=== PATIENT | male | born 1945 | race Caucasian/White ===

== ENCOUNTER 2017-11-22 09:00 | Observation (INO) ==
[2017-11-22 09:48] LABS: Basophils % 0.3 %; Eosinophils # 0.3 K/mcL (0.0-0.6); Eosinophils % 2.6 %; Hematocrit 35.1 % (37.5-50.1); Hemoglobin 10.8 g/dL (12.9-16.9); Immature Granulocytes % 0.4 % (0-4); Lymphocytes # 1.7 K/mcL (0.6-4.6); Lymphocytes % 12.8 %; Mean Corpuscular HGB Conc 30.8 g/dL (31.6-35.5); Mean Corpuscular Hemoglobin 29.3 pg (28.0-33.3); Mean Corpuscular Volume 95.4 fL (83.0-100.0); Mean Platelet Volume 10.3 fL (9.4-12.4); Monocytes % 7.8 %; Neutrophils # 9.8 K/mcL (1.6-8.9); Platelet Count 217 K/mcL (140-400); Red Blood Count 3.68 M/mcL (4.19-5.50); Red Cell Distribution Width 18.3 % (11.5-14.5); Segmented Neutrophils % 76.1 %; White Blood Count 12.9 K/mcL (4.3-11.1)
[2017-11-22 09:53] LABS: Prothrombin Time 11.3 Seconds (9.4-12.1)
[2017-11-22 09:54] LABS: Bilirubin,Urine Negative (Negative); Blood,Urine Negative (Negative); Clarity,Urine Clear (Clear); Color,Urine Yellow (Yellow); Glucose,Urine (UA) Normal (Normal); Ketones,Urine Negative (Negative); Leukocyte Esterase,Urine Negative (Negative); Nitrite,Urine Negative (Negative); PH,Urine 5.5 pH Units (5.0-8.0); Protein,Urine Negative (Neg-Trace); Specific Gravity,Urine 1.015 (1.010-1.025); Urobilinogen,Urine Normal (Normal)
[2017-11-22 09:56] LABS: Activated Partial Thrombo Time 26.4 Seconds (26.0-36.0)
[2017-11-22 10:08] LABS: BUN/Creatinine Ratio 19 (6-26); Blood Urea Nitrogen 29 mg/dL (8-23); Calcium 8.9 mg/dL (8.6-10.3); Carbon Dioxide 26 mEq/L (23-29); Chloride 105 mEq/L (98-107); Glucose 108 mg/dL (70-105); Osmolality,Calculated 288 (280-300); Potassium 4.9 mEq/L (3.5-5.1); Sodium 136 mEq/L (136-145); eGFR For African Americans 56 (> 60); eGFR For Non-African Americans 46 (> 60)
[2017-11-22 10:09] LABS: Troponin I < 0.03 ng/mL (< 0.04)
[2017-11-22] MEDS ORDERED: Furosemide 40 MG/4 ML VIAL IVP ONE (10:16)
[2017-11-22] MEDS ORDERED: Nitroglycerin 0.4 MG TAB.SUBL SL PRN (11:35)
[2017-11-22] MEDS ORDERED: Naloxone 0.4 MG/ML INJ IVP PRN (11:36)
[2017-11-22] MEDS ORDERED: Azithromycin 250 MG TABLET PO ONE ×2 (12:16→12:38)
[2017-11-22] MEDS: *HR* Heparin 5,000 UNIT/ML VIAL SQ SCH ×2 (12:50→22:41)
[2017-11-22] MEDS ORDERED: Simethicone 80 MG TAB.CHEW PO PRN (16:28)
[2017-11-22] MEDS: carvediloL 6.25 MG TABLET PO SCH (17:08)
[2017-11-22] MEDS ORDERED: Famotidine 20 MG TABLET PO SCH (21:00)
[2017-11-22] MEDS: Fluticasone Propionate Nasal 50 MCG/SPRAY BOTTLE NS SCH (22:41)
[2017-11-22] MEDS ORDERED: Melatonin 3 MG TABLET PO ONE (23:07)
[2017-11-23] MEDS: *HR* Heparin 5,000 UNIT/ML VIAL SQ SCH (05:38)
[2017-11-23 06:37] VITALS: BP 102/67
[2017-11-23] MEDS: carvediloL 6.25 MG TABLET PO SCH (08:42)
[2017-11-23] MEDS: Fluticasone Propionate Nasal 50 MCG/SPRAY BOTTLE NS SCH (08:47)
[2017-11-23] MEDS ORDERED: Aspirin Enteric Coated 81 MG Tablet PO SCH (09:00)
[2017-11-23] MEDS ORDERED: Furosemide 20 MG TABLET PO SCH (09:00)
[2017-11-23] MEDS ORDERED: EPA PO SCH (09:00)
[2017-11-23] MEDS ORDERED: Finasteride 5 MG TABLET PO SCH (09:00)
[2017-11-23] MEDS ORDERED: Loratadine 10 MG TABLET PO SCH (09:00)
[2017-11-23] MEDS ORDERED: DHA PO SCH (09:00)
[2017-11-23] MEDS ORDERED: Cyanocobalamin (B-12) 1,000 MCG TABLET PO SCH (09:00)
[2017-11-23] MEDS ORDERED: lisinopriL 5 MG TABLET PO SCH (09:00)
[2017-11-23] MEDS ORDERED: OMEGA PO SCH (09:00)
[2017-11-23] MEDS ORDERED: FISH OIL PO SCH (09:00)
[2017-11-24] MEDS ORDERED: Ergocalciferol (VIT D2) 50,000 UNIT (1.25MG) CAP PO SCH (09:00)
== END 2017-11-23 10:20 | disposition home or self-care (01) ==
LOC: EMEROOARM 09:00 → 3BNU 09:00
PROVIDERS: ADMIT Internal Medicine; ATTEND Internal Medicine

== ENCOUNTER 2018-09-19 03:25 | Inpatient (IN) ==
[2018-09-19] MEDS ORDERED: Aspirin 81 MG TAB.CHEW PO ONE (03:29)
[2018-09-19] MEDS: Nitroglycerin 0.4 MG TAB.SUBL SL PRN ×3 (03:39→03:49)
[2018-09-19 03:45] LABS: Basophils # 0.1 K/mcL (0.0-0.2); Basophils % 0.4 %; Eosinophils # 0.1 K/mcL (0.0-0.6); Eosinophils % 0.5 %; Hematocrit 35.5 % (37.5-50.1); Hemoglobin 11.4 g/dL (12.9-16.9); Immature Granulocytes % 0.6 % (0-4); Lymphocytes # 1.8 K/mcL (0.6-4.6); Lymphocytes % 12.3 %; Mean Corpuscular HGB Conc 32.1 g/dL (31.6-35.5); Mean Corpuscular Hemoglobin 29.4 pg (28.0-33.3); Mean Corpuscular Volume 91.5 fL (83.0-100.0); Mean Platelet Volume 10.5 fL (9.4-12.4); Monocytes # 1.4 K/mcL (0.0-1.3); Neutrophils # 10.8 K/mcL (1.6-8.9); Platelet Count 202 K/mcL (140-400); Red Blood Count 3.88 M/mcL (4.19-5.50); Red Cell Distribution Width 17.8 % (11.5-14.5); Segmented Neutrophils % 76.2 %; White Blood Count 14.2 K/mcL (4.3-11.1)
[2018-09-19 04:01] LABS: Prothrombin Time 11.8 Seconds (9.4-12.1)
[2018-09-19 04:04] LABS: Activated Partial Thrombo Time 28.1 Seconds (26.0-36.0)
[2018-09-19 04:07] LABS: Calcium 8.5 mg/dL (8.6-10.3); Potassium 3.5 mEq/L (3.5-5.1)
[2018-09-19 04:08] LABS: Troponin I 0.03 ng/mL (< 0.04)
[2018-09-19 04:57] LABS: Bilirubin,Urine Negative (Negative); Blood,Urine Negative (Negative); Clarity,Urine Cloudy (Clear); Color,Urine Yellow (Yellow); Glucose,Urine (UA) Normal (Normal); Ketones,Urine Negative (Negative); Leukocyte Esterase,Urine Small (Negative); Nitrite,Urine Negative (Negative); PH,Urine 5.5 pH Units (5.0-8.0); Protein,Urine Trace mg/dL (Neg-Trace); Specific Gravity,Urine 1.023 (1.010-1.025); Urobilinogen,Urine Normal (Normal)
[2018-09-19 04:59] LABS: RBC,Urine 0-3 per hpf (0-3); Squamous Epithelial Cell,Urine Many per lpf (None-Few)
[2018-09-19] MEDS ORDERED: cefTRIAXone 2,000 MG in Water for inj. (sterile) 20 ML IVP STA (05:02)
[2018-09-19] MEDS ORDERED: levoFLOXacin 750 MG/150 ML 750 MG/150 ML BAG IVPB STA (05:02)
[2018-09-19 05:10] LABS: Bacteria,Urine Few per hpf (None-Few); Hyaline Casts,Urine Few per lpf (None-Few)
[2018-09-19] MEDS ORDERED: Acetaminophen 325 MG TABLET PO PRN (05:51)
[2018-09-19] MEDS ORDERED: Ipratropium/Albuterol Neb 3 ML IH PRN (05:51)
[2018-09-19] MEDS ORDERED: Ringers Solution, Lactated 1,000 ML IVC SCH (06:00)
[2018-09-19] MEDS: *HR* Heparin 5,000 UNIT/ML VIAL SQ SCH ×3 (08:20→16:24)
[2018-09-19] MEDS: Aspirin Enteric Coated 81 MG Tablet PO SCH (08:20)
[2018-09-19] MEDS: carvediloL 6.25 MG TABLET PO SCH ×2 (08:21→16:25)
[2018-09-19] MEDS: Folic Acid 1 MG TABLET PO SCH (08:21)
[2018-09-19] MEDS: Fluticasone Propionate Nasal 50 MCG/SPRAY BOTTLE NS SCH ×2 (08:21→20:54)
[2018-09-19] MEDS: Furosemide 40 MG/4 ML VIAL IVP SCH ×2 (08:27→16:25)
[2018-09-19] MEDS ORDERED: Furosemide 20 MG TABLET PO SCH (09:00)
[2018-09-19] MEDS ORDERED: hydrOXYzine pamoate 25 MG CAPSULE PO SCH (09:00)
[2018-09-19] MEDS: cefTRIAXone 2,000 MG in Water for inj. (sterile) 20 ML IVP SCH (14:17)
[2018-09-19] MEDS: metroNIDAZOLE 500 MG TABLET PO SCH ×2 (14:17→20:54)
[2018-09-19] MEDS: *HR* OxyCODONE/APAP 10/325 TABLET PO PRN (16:32)
[2018-09-20 02:41] LABS: Hematocrit 36.7 % (37.5-50.1); Hemoglobin 11.2 g/dL (12.9-16.9); Mean Corpuscular HGB Conc 30.5 g/dL (31.6-35.5); Mean Corpuscular Hemoglobin 28.6 pg (28.0-33.3); Mean Corpuscular Volume 93.6 fL (83.0-100.0); Mean Platelet Volume 10.8 fL (9.4-12.4); Platelet Count 215 K/mcL (140-400); Red Blood Count 3.92 M/mcL (4.19-5.50); Red Cell Distribution Width 17.7 % (11.5-14.5)
[2018-09-20 03:01] LABS: Calcium 8.6 mg/dL (8.6-10.3); Potassium 3.8 mEq/L (3.5-5.1)
[2018-09-20] MEDS: *HR* Heparin 5,000 UNIT/ML VIAL SQ SCH ×2 (05:49→21:07)
[2018-09-20] MEDS: *HR* OxyCODONE/APAP 10/325 TABLET PO PRN ×3 (05:55→22:17)
[2018-09-20] MEDS: metroNIDAZOLE 500 MG TABLET PO SCH ×3 (07:46→21:13)
[2018-09-20] MEDS: Folic Acid 1 MG TABLET PO SCH (07:46)
[2018-09-20] MEDS: Aspirin Enteric Coated 81 MG Tablet PO SCH (07:47)
[2018-09-20] MEDS: cefTRIAXone 2,000 MG in Water for inj. (sterile) 20 ML IVP SCH (07:47)
[2018-09-20] MEDS: carvediloL 6.25 MG TABLET PO SCH ×2 (07:47→16:59)
[2018-09-20] MEDS: Fluticasone Propionate Nasal 50 MCG/SPRAY BOTTLE NS SCH ×2 (07:48→21:14)
[2018-09-20] MEDS ORDERED: Furosemide 20 MG TABLET PO SCH (08:00)
[2018-09-20] MEDS ORDERED: levoFLOXacin 500 MG/100 ML 500 MG/100 ML BAG IVPB SCH (09:00)
[2018-09-20] MEDS ORDERED: levoFLOXacin 750 MG/150 ML 750 MG/150 ML BAG IVPB SCH (09:00)
[2018-09-20] MEDS: Furosemide 40 MG/4 ML VIAL IVP SCH ×2 (13:51→16:59)
[2018-09-21 02:47] LABS: Hematocrit 35.1 % (37.5-50.1); Hemoglobin 10.5 g/dL (12.9-16.9); Mean Corpuscular HGB Conc 29.9 g/dL (31.6-35.5); Mean Corpuscular Hemoglobin 28.5 pg (28.0-33.3); Mean Corpuscular Volume 95.1 fL (83.0-100.0); Mean Platelet Volume 10.4 fL (9.4-12.4); Platelet Count 218 K/mcL (140-400); Red Blood Count 3.69 M/mcL (4.19-5.50); Red Cell Distribution Width 17.4 % (11.5-14.5)
[2018-09-21 03:07] LABS: Calcium 8.4 mg/dL (8.6-10.3); Potassium 3.7 mEq/L (3.5-5.1)
[2018-09-21] MEDS: *HR* Heparin 5,000 UNIT/ML VIAL SQ SCH ×2 (05:22→17:41)
[2018-09-21] MEDS: metroNIDAZOLE 500 MG TABLET PO SCH ×3 (09:21→22:02)
[2018-09-21] MEDS: carvediloL 6.25 MG TABLET PO SCH ×2 (09:21→17:40)
[2018-09-21] MEDS: Aspirin Enteric Coated 81 MG Tablet PO SCH (09:21)
[2018-09-21] MEDS: Furosemide 40 MG/4 ML VIAL IVP SCH ×2 (09:21→17:40)
[2018-09-21] MEDS: Folic Acid 1 MG TABLET PO SCH (09:21)
[2018-09-21] MEDS: cefTRIAXone 2,000 MG in Water for inj. (sterile) 20 ML IVP SCH (09:22)
[2018-09-21] MEDS: Fluticasone Propionate Nasal 50 MCG/SPRAY BOTTLE NS SCH ×2 (09:23→22:03)
[2018-09-21] MEDS: *HR* OxyCODONE/APAP 10/325 TABLET PO PRN ×2 (12:12→17:40)
[2018-09-22] MEDS: *HR* OxyCODONE/APAP 10/325 TABLET PO PRN (05:55)
[2018-09-22] MEDS: *HR* Heparin 5,000 UNIT/ML VIAL SQ SCH (05:57)
[2018-09-22 08:02] LABS: Hematocrit 34.7 % (37.5-50.1); Hemoglobin 10.6 g/dL (12.9-16.9); Mean Corpuscular HGB Conc 30.5 g/dL (31.6-35.5); Mean Corpuscular Volume 94.8 fL (83.0-100.0); Mean Platelet Volume 10.6 fL (9.4-12.4); Platelet Count 238 K/mcL (140-400); Red Blood Count 3.66 M/mcL (4.19-5.50); Red Cell Distribution Width 17.3 % (11.5-14.5); White Blood Count 11.2 K/mcL (4.3-11.1)
[2018-09-22 08:22] LABS: Calcium 8.9 mg/dL (8.6-10.3); Potassium 3.6 mEq/L (3.5-5.1)
[2018-09-22] MEDS ORDERED: Cefdinir 300 MG CAPSULE PO SCH (09:00)
[2018-09-22] MEDS: metroNIDAZOLE 500 MG TABLET PO SCH (09:09)
[2018-09-22] MEDS: Furosemide 40 MG/4 ML VIAL IVP SCH (09:10)
[2018-09-22] MEDS: carvediloL 6.25 MG TABLET PO SCH (09:10)
[2018-09-22] MEDS: Aspirin Enteric Coated 81 MG Tablet PO SCH (09:10)
[2018-09-22] MEDS: Folic Acid 1 MG TABLET PO SCH (09:10)
[2018-09-22] MEDS: Fluticasone Propionate Nasal 50 MCG/SPRAY BOTTLE NS SCH (09:12)
[2018-09-22 11:15] VITALS: BP 122/71
== END 2018-09-22 12:53 | disposition home or self-care (01) | DRG 177 ==
LOC: 2ANU 03:25 → EMEROOARM 03:25 → SUATTDRO 05:52 → 2ANU 05:55
PROVIDERS: ADMIT Internal Medicine; ATTEND Internal Medicine

== ENCOUNTER 2020-09-24 03:12 | Inpatient (IN) ==
[2020-09-24 03:51] LABS: Basophils % 0.2 %; Eosinophils # 0.1 K/mcL (0.0-0.6); Eosinophils % 0.7 %; Hematocrit 16.1 % (37.5-50.1); Immature Granulocytes % 0.8 % (0-4); Lymphocytes % 13.5 %; Mean Corpuscular HGB Conc 31.1 g/dL (31.6-35.5); Mean Corpuscular Hemoglobin 29.1 pg (28.0-33.3); Mean Corpuscular Volume 93.6 fL (83.0-100.0); Mean Platelet Volume 10.6 fL (9.4-12.4); Monocytes % 6.5 %; Neutrophils # 11.7 K/mcL (1.6-8.9); Platelet Count 294 K/mcL (140-400); Red Blood Count 1.72 M/mcL (4.19-5.50); Red Cell Distribution Width 16.2 % (11.5-14.5); Segmented Neutrophils % 78.3 %; White Blood Count 14.9 K/mcL (4.3-11.1)
[2020-09-24 04:00] LABS: INR 1.1; Prothrombin Time 12.6 Seconds (9.4-12.1)
[2020-09-24 04:03] LABS: Activated Partial Thrombo Time 22.7 Seconds (26.0-36.0)
[2020-09-24] MEDS ORDERED: Pantoprazole 40 MG VIAL IVP ONE (04:04)
[2020-09-24 04:09] LABS: Bilirubin,Urine Negative (Negative); Blood,Urine Trace (Negative); Clarity,Urine Clear (Clear); Color,Urine Colorless (Yellow); Glucose,Urine (UA) Normal (Normal); Hyaline Casts,Urine Few per lpf (None Seen); Ketones,Urine Negative (Negative); Leukocyte Esterase,Urine Negative (Negative); Nitrite,Urine Negative (Negative); PH,Urine 6.5 pH Units (5.0-8.0); Protein,Urine Negative (Neg-Trace); Specific Gravity,Urine 1.015 (1.010-1.025); Squamous Epithelial Cell,Urine Few per hpf (None-Few); Urobilinogen,Urine Normal (Normal); WBC,Urine 0-3 per hpf (0-3)
[2020-09-24 04:13] LABS: Alanine Aminotransferase 11 Units/L (7-52); Albumin 2.7 g/dL (3.5-5.7); Albumin/Globulin Ratio 1.1 (1.1-2.2); Alkaline Phosphatase 98 Units/L (34-104); Aspartate Amino Transferase 12 Units/L (13-39); BUN/Creatinine Ratio 34 (6-26); Bilirubin,Indirect 0.2 mg/dL (0.0-1.0); Bilirubin,Total 0.2 mg/dL (0.3-1.0); Blood Urea Nitrogen 91 mg/dL (8-23); Carbon Dioxide 30 mEq/L (23-29); Chloride 105 mEq/L (98-107); Globulin 2.4 g/dL (2.4-3.5); Glucose 130 mg/dL (70-105); Lipase 19 Units/L (11-82); Magnesium 2.3 mg/dL (1.6-2.6); Osmolality,Calculated 328 (280-300); Potassium 4.2 mEq/L (3.5-5.1); Sodium 144 mEq/L (136-145); Total Protein 5.1 g/dL (6.4-8.9); Troponin I < 0.03 ng/mL (< 0.04); eGFR For African Americans 28 (> 60); eGFR For Non-African Americans 23 (> 60)
[2020-09-24] MEDS ORDERED: 0.9 % Sodium Chloride 250 ML ONE ×2 (05:40→09:41)
[2020-09-24] MEDS ORDERED: Dextrose Gel 15 GM/37.5 ML TUBE PO PRN ×2 (07:16)
[2020-09-24] MEDS ORDERED: D5% in Water 1,000 ML IVC PRN (07:16)
[2020-09-24] MEDS ORDERED: Naloxone 0.4 MG/ML INJ IVP PRN (07:16)
[2020-09-24] MEDS ORDERED: *HR* Dextrose 50 % in Water (Vial) 50 ML VIAL IVP PRN (07:16)
[2020-09-24] MEDS ORDERED: Ondansetron 4 MG/2 ML VIAL IVP PRN ×2 (07:16→10:37)
[2020-09-24] MEDS ORDERED: Acetaminophen 325 MG TABLET PO PRN (07:16)
[2020-09-24] MEDS ORDERED: *HR* OxyCODONE Immed Rel 5 MG TABLET PO PRN (08:00)
[2020-09-24] MEDS ORDERED: *HR* FentaNYL (PF) 100 MCG/2 ML VIAL IVP PRN (10:37)
[2020-09-24] MEDS ORDERED: *HR* HYDROmorphone PF 0.5 MG/0.5 ML SYRINGE IVP PRN (10:37)
[2020-09-24] MEDS: Insulin LISPRO 300 UNITS/3 ML VIAL SUBQ SCH ×2 (12:23→18:01)
[2020-09-24] MEDS: 0.9 % Sodium Chloride 1,000 ML IVC SCH (13:25)
[2020-09-24 14:17] LABS: Hematocrit 21.4 % (37.5-50.1)
[2020-09-24 14:18] LABS: Hemoglobin 6.7 g/dL (12.9-16.9)
[2020-09-24] MEDS ORDERED: Lidocaine -MPF 2% 5 ML VIAL ONE (15:06)
[2020-09-24] MEDS ORDERED: *HR* Propofol 200 MG/20 ML VIAL IVP ONE (15:06)
[2020-09-24] MEDS ORDERED: *HR* FentaNYL (PF) 100 MCG/2 ML VIAL ONE (15:40)
[2020-09-24] MEDS ORDERED: *HR* Rocuronium Bromide 50 MG/5 ML VIAL ONE (15:41)
[2020-09-24] MEDS ORDERED: Pantoprazole 40 MG in 0.9 % Sodium Chloride Mini Bag 100 ML IVC SCH (15:50)
[2020-09-24] MEDS ORDERED: Ondansetron 4 MG/2 ML VIAL ONE (15:58)
[2020-09-24] MEDS ORDERED: *HR* Succinylcholine 200 MG/10 ML VIAL IVP ONE (15:58)
[2020-09-24] MEDS ORDERED: Pantoprazole 40 MG VIAL IVP SCH (18:00)
[2020-09-24] MEDS ORDERED: Haloperidol Lactate 5 MG/ML VIAL IVP ONE (20:29)
[2020-09-24] MEDS ORDERED: *HR* LORazepam 2 MG/ML VIAL IVP ONE (20:29)
[2020-09-24] MEDS: Pantoprazole 40 MG in 0.9 % Sodium Chloride Mini Bag 100 ML IVC SCH (21:29)
[2020-09-25] MEDS: Insulin LISPRO 300 UNITS/3 ML VIAL SUBQ SCH ×4 (03:28→17:50)
[2020-09-25] MEDS: 0.9 % Sodium Chloride 1,000 ML IVC SCH (05:57)
[2020-09-25 07:43] LABS: Basophils % 0.1 %; Hematocrit 20.8 % (37.5-50.1); Hematocrit 21.5 % (37.5-50.1); Hemoglobin 6.5 g/dL (12.9-16.9); Hemoglobin 6.6 g/dL (12.9-16.9); Immature Granulocytes % 1.2 % (0-4); Lymphocytes # 0.9 K/mcL (0.6-4.6); Lymphocytes % 4.4 %; Mean Corpuscular HGB Conc 31.3 g/dL (31.6-35.5); Mean Corpuscular Hemoglobin 28.8 pg (28.0-33.3); Mean Platelet Volume 10.3 fL (9.4-12.4); Monocytes # 0.7 K/mcL (0.0-1.3); Monocytes % 3.4 %; Neutrophils # 18.7 K/mcL (1.6-8.9); Platelet Count 291 K/mcL (140-400); Red Blood Count 2.26 M/mcL (4.19-5.50); Red Cell Distribution Width 17.1 % (11.5-14.5); Segmented Neutrophils % 90.9 %; White Blood Count 20.6 K/mcL (4.3-11.1)
[2020-09-25 08:10] LABS: Calcium 8.1 mg/dL (8.6-10.3); Magnesium 2.3 mg/dL (1.6-2.6); Phosphorous 2.6 mg/dL (2.7-4.5); Potassium 4.2 mEq/L (3.5-5.1)
[2020-09-25 08:15] LABS: % Iron Saturation 9 % (20-55); Iron 23 mcg/dL (65-175); Transferrin 189 mg/dL (203-362)
[2020-09-25 08:20] LABS: Ferritin 74 ng/mL (20-250)
[2020-09-25] MEDS: Pantoprazole 40 MG in 0.9 % Sodium Chloride Mini Bag 100 ML IVC SCH ×2 (14:59→20:53)
[2020-09-25 16:25] LABS: Hematocrit 23.9 % (37.5-50.1); Hemoglobin 7.2 g/dL (12.9-16.9)
[2020-09-25] MEDS: carvediloL 6.25 MG TABLET PO SCH (20:52)
[2020-09-25] MEDS: Famotidine 20 MG TABLET PO SCH (20:52)
[2020-09-25] MEDS ORDERED: carvediloL 6.25 MG TABLET PO SCH (21:00)
[2020-09-25] MEDS: *HR* HYDROcodone/Acet 5/325 mg TABLET PO PRN (23:55)
[2020-09-26] MEDS: Insulin LISPRO 300 UNITS/3 ML VIAL SUBQ SCH ×3 (02:46→16:31)
[2020-09-26] MEDS: Pantoprazole 40 MG in 0.9 % Sodium Chloride Mini Bag 100 ML IVC SCH ×3 (05:41→16:47)
[2020-09-26] MEDS: carvediloL 6.25 MG TABLET PO SCH ×2 (08:35→15:45)
[2020-09-26] MEDS ORDERED: Finasteride 5 MG TABLET PO SCH (09:00)
[2020-09-26] MEDS ORDERED: Folic Acid 1 MG TABLET PO SCH (09:00)
[2020-09-26] MEDS ORDERED: Cyanocobalamin (B-12) 1,000 MCG TABLET PO SCH (09:00)
[2020-09-26] MEDS ORDERED: Cholecalciferol (D-3) 1,000 UNIT (25MCG) TABLET PO SCH (09:00)
[2020-09-26 09:12] LABS: Basophils % 0.2 %; Eosinophils # 0.1 K/mcL (0.0-0.6); Eosinophils % 0.3 %; Hematocrit 21.3 % (37.5-50.1); Hemoglobin 6.7 g/dL (12.9-16.9); Immature Granulocytes % 1.1 % (0-4); Lymphocytes # 2.5 K/mcL (0.6-4.6); Lymphocytes % 10.5 %; Mean Corpuscular HGB Conc 31.5 g/dL (31.6-35.5); Mean Corpuscular Hemoglobin 28.4 pg (28.0-33.3); Mean Corpuscular Volume 90.3 fL (83.0-100.0); Mean Platelet Volume 10.1 fL (9.4-12.4); Monocytes # 1.6 K/mcL (0.0-1.3); Monocytes % 6.6 %; Neutrophils # 19.1 K/mcL (1.6-8.9); Nucleated Red Blood Cells 0.2 /100 WBC (0); Platelet Count 303 K/mcL (140-400); Red Blood Count 2.36 M/mcL (4.19-5.50); Red Cell Distribution Width 19.9 % (11.5-14.5); Segmented Neutrophils % 81.3 %; White Blood Count 23.4 K/mcL (4.3-11.1)
[2020-09-26 09:30] LABS: Albumin 2.8 g/dL (3.5-5.7); Albumin/Globulin Ratio 1.2 (1.1-2.2); Bilirubin,Total 0.3 mg/dL (0.3-1.0); Calcium 8.2 mg/dL (8.6-10.3); Globulin 2.3 g/dL (2.4-3.5); Magnesium 2.2 mg/dL (1.6-2.6); Phosphorous 3.3 mg/dL (2.7-4.5); Potassium 4.2 mEq/L (3.5-5.1); Total Protein 5.1 g/dL (6.4-8.9)
[2020-09-26 09:54] LABS: Folate 7.3 ng/mL (3.0-16.0)
[2020-09-26] MEDS: *HR* HYDROcodone/Acet 5/325 mg TABLET PO PRN ×2 (10:51→16:47)
[2020-09-26] MEDS ORDERED: 0.9 % Sodium Chloride 250 ML ONE (13:00)
[2020-09-26 17:47] LABS: Hematocrit 23.7 % (37.5-50.1); Hemoglobin 7.5 g/dL (12.9-16.9)
[2020-09-26] MEDS: Famotidine 20 MG TABLET PO SCH (19:25)
[2020-09-26 20:22] VITALS: BP 131/65; PULSE 60; TEMP 98.3; O2SAT 97
== END 2020-09-26 20:42 | disposition left against medical advice (07) | DRG 377 ==
LOC: CDU 03:12 → EMEROOARM 03:12 → SUATTDRO 05:29 → CDU 06:08 → 3ANU 22:48
PROVIDERS: ADMIT Family Medicine; ATTEND Internal Medicine

== ENCOUNTER 2021-05-18 07:22 | Inpatient (IN) ==
[2021-05-18] MEDS ORDERED: 0.9 % Sodium Chloride 1,000 ML IVC ONE (07:27)
[2021-05-18 08:28] LABS: Bilirubin,Urine Negative (Negative); Blood,Urine Moderate (Negative); Clarity,Urine Turbid (Clear); Color,Urine Yellow (Yellow); Glucose,Urine (UA) Normal (Normal); Hyaline Casts,Urine Few per lpf (None Seen); Ketones,Urine 20 mg/dL (Negative); Leukocyte Esterase,Urine Large (Negative); Mucus,Urine Few per lpf (None-Few); Nitrite,Urine Negative (Negative); Protein,Urine 100 mg/dL (Neg-Trace); RBC,Urine 50-100 per hpf (0-3); Specific Gravity,Urine 1.014 (1.010-1.025); Squamous Epithelial Cell,Urine Few per hpf (None-Few); WBC,Urine TNTC per hpf (0-3)
[2021-05-18 08:45] LABS: Basophils % 0.3 %; Eosinophils # 0.6 K/mcL (0.0-0.6); Eosinophils % 5.2 %; Hematocrit 31.4 % (37.5-50.1); Hemoglobin 9.7 g/dL (12.9-16.9); Immature Granulocytes % 0.4 % (0-4); Lymphocytes # 1.1 K/mcL (0.6-4.6); Lymphocytes % 10.3 %; Mean Corpuscular HGB Conc 30.9 g/dL (31.6-35.5); Mean Corpuscular Hemoglobin 28.3 pg (28.0-33.3); Mean Corpuscular Volume 91.5 fL (83.0-100.0); Mean Platelet Volume 10.3 fL (9.4-12.4); Monocytes % 9.3 %; Neutrophils # 8.3 K/mcL (1.6-8.9); Platelet Count 335 K/mcL (140-400); Red Blood Count 3.43 M/mcL (4.19-5.50); Red Cell Distribution Width 18.5 % (11.5-14.5); Segmented Neutrophils % 74.5 %; White Blood Count 11.1 K/mcL (4.3-11.1)
[2021-05-18 08:52] LABS: INR 1.3; Prothrombin Time 14.1 Seconds (9.4-12.1)
[2021-05-18 09:09] LABS: Alanine Aminotransferase 7 Units/L (7-52); Albumin 2.9 g/dL (3.5-5.7); Albumin/Globulin Ratio 0.8 (1.1-2.2); Alkaline Phosphatase 164 Units/L (34-104); Aspartate Amino Transferase 21 Units/L (13-39); BUN/Creatinine Ratio 10 (6-26); Bilirubin,Direct 0.4 mg/dL (0.0-0.2); Bilirubin,Indirect 0.4 mg/dL (0.0-1.0); Bilirubin,Total 0.8 mg/dL (0.3-1.0); Blood Urea Nitrogen 45 mg/dL (8-23); Calcium 8.2 mg/dL (8.6-10.3); Carbon Dioxide 31 mEq/L (23-29); Chloride 103 mEq/L (98-107); Ethanol < 10 mg/dL (Less than 10); Globulin 3.5 g/dL (2.4-3.5); Glucose 88 mg/dL (70-105); Osmolality,Calculated 311 (280-300); Potassium 3.5 mEq/L (3.5-5.1); Sodium 145 mEq/L (136-145); Total Protein 6.4 g/dL (6.4-8.9); Troponin I 0.06 ng/mL (< 0.04); eGFR For African Americans 15 (> 60); eGFR For Non-African Americans 12 (> 60)
[2021-05-18 09:12] LABS: Amphetamine Screen,Urine Negative ng/mL (Cutoff=1000); Barbiturate Screen,Urine Negative ng/mL (Cutoff=200); Benzodiazepines Screen,Urine Negative ng/mL (Cutoff=200); Cannabinoid Screen,Urine Negative ng/mL (Cutoff = 50); Cocaine Screen,Urine Negative ng/mL (Cutoff= 300); Opiate Screen,Urine Negative ng/mL (Cutoff=300); Phencyclidine Screen,Urine Negative ng/mL (Cutoff=25)
[2021-05-18] MEDS ORDERED: cefTRIAXone 2,000 MG in 0.9 % Sodium Chloride Mini Bag 100 ML IVPB ONE (09:45)
[2021-05-18] MEDS ORDERED: cefTRIAXone 2,000 MG in 0.9 % Sodium Chloride 10 ML IVP ONE (10:00)
[2021-05-18] MEDS ORDERED: Naloxone 0.4 MG/ML INJ IVP PRN (11:05)
[2021-05-18] MEDS ORDERED: Ondansetron 4 MG/2 ML VIAL IVP PRN (11:05)
[2021-05-18] MEDS ORDERED: D5% in Water 1,000 ML IVC PRN (12:01)
[2021-05-18] MEDS ORDERED: Dextrose 4 GM Chewable Tablets PO PRN ×2 (12:01)
[2021-05-18] MEDS ORDERED: *HR* Dextrose 50 % in Water (Syg) 50 ML SYRINGE IVP PRN (12:01)
[2021-05-18] MEDS: 0.9 % Sodium Chloride 1,000 ML IVC SCH ×2 (12:18→23:26)
[2021-05-18] MEDS: *HR* Heparin 5,000 UNIT/ML VIAL SQ SCH (17:16)
[2021-05-18] MEDS: carvediloL 6.25 MG TABLET PO SCH (17:16)
[2021-05-19 03:03] LABS: Basophils % 0.4 %; Eosinophils # 0.6 K/mcL (0.0-0.6); Eosinophils % 6.5 %; Hematocrit 28.8 % (37.5-50.1); Hemoglobin 8.6 g/dL (12.9-16.9); Immature Granulocytes % 0.3 % (0-4); Lymphocytes # 1.1 K/mcL (0.6-4.6); Lymphocytes % 11.8 %; Mean Corpuscular HGB Conc 29.9 g/dL (31.6-35.5); Mean Corpuscular Hemoglobin 27.3 pg (28.0-33.3); Mean Corpuscular Volume 91.4 fL (83.0-100.0); Mean Platelet Volume 10.3 fL (9.4-12.4); Monocytes # 0.7 K/mcL (0.0-1.3); Monocytes % 7.6 %; Neutrophils # 6.7 K/mcL (1.6-8.9); Platelet Count 292 K/mcL (140-400); Red Blood Count 3.15 M/mcL (4.19-5.50); Red Cell Distribution Width 18.6 % (11.5-14.5); Segmented Neutrophils % 73.4 %; White Blood Count 9.2 K/mcL (4.3-11.1)
[2021-05-19 03:27] LABS: Calcium 7.5 mg/dL (8.6-10.3); Magnesium 1.8 mg/dL (1.6-2.6); Phosphorous 2.9 mg/dL (2.7-4.5); Potassium 3.4 mEq/L (3.5-5.1); Troponin I 0.06 ng/mL (< 0.04)
[2021-05-19] MEDS ORDERED: 0.9 % Sodium Chloride 1,000 ML IVC SCH (03:45)
[2021-05-19] MEDS: *HR* Heparin 5,000 UNIT/ML VIAL SQ SCH ×2 (06:12→17:03)
[2021-05-19] MEDS ORDERED: Sennosides/Docusate Sodium TABLET PO PRN (07:40)
[2021-05-19] MEDS ORDERED: Nitroglycerin 0.4 MG TAB.SUBL SL PRN (07:40)
[2021-05-19] MEDS ORDERED: *HR* OxyCODONE/APAP 10/325 TABLET PO PRN (07:40)
[2021-05-19 08:34] LABS: Uric Acid 8.4 mg/dL (2.3-7.6)
[2021-05-19] MEDS: Lactulose Oral Soln 20 GM/30 ML UDC PO SCH ×2 (09:40→09:42)
[2021-05-19] MEDS: Cyanocobalamin (B-12) 1,000 MCG TABLET PO SCH (09:41)
[2021-05-19] MEDS: Folic Acid 1 MG TABLET PO SCH (09:41)
[2021-05-19] MEDS: allopurinoL 100 MG TABLET PO SCH (09:42)
[2021-05-19] MEDS: carvediloL 6.25 MG TABLET PO SCH ×2 (09:42→17:08)
[2021-05-19] MEDS: Finasteride 5 MG TABLET PO SCH (09:46)
[2021-05-19] MEDS: cefTRIAXone 1,000 MG in 0.9 % Sodium Chloride 10 ML IVP SCH (09:47)
[2021-05-19] MEDS ORDERED: Acetaminophen 650 MG RECTAL SUPP RC PRN (10:54)
[2021-05-19] MEDS ORDERED: Acetaminophen 325 MG TABLET PO PRN (10:55)
[2021-05-19] MEDS ORDERED: D5% in 0.45% NACL 1,000 ML IVC SCH (11:00)
[2021-05-19 11:32] LABS: Protein/Creatinine Ratio,Urine 1.28 mg/mg (0.00-0.20); Sodium, Urine 91.7 mEq/L
[2021-05-19] MEDS: D5% in 0.45% NACL 1,000 ML IVC SCH (13:10)
[2021-05-20] MEDS: D5% in 0.45% NACL 1,000 ML IVC SCH ×2 (03:34→17:38)
[2021-05-20 05:30] LABS: Basophils # 0.1 K/mcL (0.0-0.2); Basophils % 0.6 %; Eosinophils # 0.7 K/mcL (0.0-0.6); Eosinophils % 7.8 %; Hematocrit 29.3 % (37.5-50.1); Hemoglobin 8.9 g/dL (12.9-16.9); Immature Granulocytes % 0.4 % (0-4); Lymphocytes # 1.1 K/mcL (0.6-4.6); Lymphocytes % 13.1 %; Mean Corpuscular HGB Conc 30.4 g/dL (31.6-35.5); Mean Corpuscular Hemoglobin 27.8 pg (28.0-33.3); Mean Corpuscular Volume 91.6 fL (83.0-100.0); Mean Platelet Volume 10.3 fL (9.4-12.4); Monocytes # 0.6 K/mcL (0.0-1.3); Monocytes % 7.1 %; Platelet Count 301 K/mcL (140-400); Red Cell Distribution Width 18.7 % (11.5-14.5); White Blood Count 8.5 K/mcL (4.3-11.1)
[2021-05-20] MEDS: *HR* Heparin 5,000 UNIT/ML VIAL SQ SCH ×2 (05:46→17:40)
[2021-05-20 05:47] LABS: Potassium 3.2 mEq/L (3.5-5.1)
[2021-05-20] MEDS: Folic Acid 1 MG TABLET PO SCH (10:18)
[2021-05-20] MEDS: Finasteride 5 MG TABLET PO SCH (10:18)
[2021-05-20] MEDS: cefTRIAXone 1,000 MG in 0.9 % Sodium Chloride 10 ML IVP SCH (10:19)
[2021-05-20] MEDS: Lactulose Oral Soln 20 GM/30 ML UDC PO SCH (10:19)
[2021-05-20] MEDS: Cyanocobalamin (B-12) 1,000 MCG TABLET PO SCH (10:19)
[2021-05-20] MEDS: carvediloL 6.25 MG TABLET PO SCH ×2 (10:19→17:40)
[2021-05-20] MEDS: allopurinoL 100 MG TABLET PO SCH (10:19)
[2021-05-20] MEDS ORDERED: Simethicone 80 MG TAB.CHEW PO PRN (10:20)
[2021-05-21 05:27] LABS: Basophils % 0.3 %; Eosinophils # 0.7 K/mcL (0.0-0.6); Eosinophils % 7.9 %; Hematocrit 30.6 % (37.5-50.1); Immature Granulocytes % 0.4 % (0-4); Lymphocytes # 1.1 K/mcL (0.6-4.6); Lymphocytes % 12.1 %; Mean Corpuscular HGB Conc 29.4 g/dL (31.6-35.5); Mean Corpuscular Hemoglobin 27.4 pg (28.0-33.3); Mean Corpuscular Volume 93.3 fL (83.0-100.0); Mean Platelet Volume 10.7 fL (9.4-12.4); Monocytes # 0.7 K/mcL (0.0-1.3); Monocytes % 7.2 %; Neutrophils # 6.5 K/mcL (1.6-8.9); Platelet Count 291 K/mcL (140-400); Red Blood Count 3.28 M/mcL (4.19-5.50); Red Cell Distribution Width 18.6 % (11.5-14.5); Segmented Neutrophils % 72.1 %; White Blood Count 9.1 K/mcL (4.3-11.1)
[2021-05-21 05:32] LABS: INR 1.1; Prothrombin Time 12.8 Seconds (9.4-12.1)
[2021-05-21] MEDS: *HR* Heparin 5,000 UNIT/ML VIAL SQ SCH ×3 (05:34→21:40)
[2021-05-21 05:56] LABS: Calcium 8.1 mg/dL (8.6-10.3); Potassium 3.4 mEq/L (3.5-5.1)
[2021-05-21] MEDS: Folic Acid 1 MG TABLET PO SCH (10:37)
[2021-05-21] MEDS: Finasteride 5 MG TABLET PO SCH (10:37)
[2021-05-21] MEDS: Cyanocobalamin (B-12) 1,000 MCG TABLET PO SCH (10:37)
[2021-05-21] MEDS: Lactulose Oral Soln 20 GM/30 ML UDC PO SCH (10:37)
[2021-05-21] MEDS: allopurinoL 100 MG TABLET PO SCH (10:37)
[2021-05-21] MEDS: cefTRIAXone 1,000 MG in 0.9 % Sodium Chloride 10 ML IVP SCH (10:38)
[2021-05-21] MEDS: carvediloL 6.25 MG TABLET PO SCH ×2 (10:40→16:05)
[2021-05-21] MEDS: D5% in 0.45% NACL 1,000 ML IVC SCH (10:47)
[2021-05-21] MEDS ORDERED: Potassium Chloride Elixir 20 MEQ/15 ML UDC PO ONE (15:47)
[2021-05-21] MEDS: Colchicine 0.6 MG TABLET PO SCH (16:05)
[2021-05-21] MEDS ORDERED: 0.9 % Sodium Chloride 1,000 ML IVC ONE (23:51)
[2021-05-22] MEDS: D5% in 0.45% NACL 1,000 ML IVC SCH ×2 (00:39→02:48)
[2021-05-22 01:35] LABS: Basophils % 0.5 %; Eosinophils # 0.7 K/mcL (0.0-0.6); Eosinophils % 7.9 %; Hematocrit 28.7 % (37.5-50.1); Hemoglobin 8.4 g/dL (12.9-16.9); Immature Granulocytes % 0.6 % (0-4); Lymphocytes # 1.1 K/mcL (0.6-4.6); Lymphocytes % 12.5 %; Mean Corpuscular HGB Conc 29.3 g/dL (31.6-35.5); Mean Corpuscular Hemoglobin 27.4 pg (28.0-33.3); Mean Corpuscular Volume 93.5 fL (83.0-100.0); Mean Platelet Volume 10.3 fL (9.4-12.4); Monocytes # 0.7 K/mcL (0.0-1.3); Monocytes % 8.6 %; Platelet Count 277 K/mcL (140-400); Red Blood Count 3.07 M/mcL (4.19-5.50); Red Cell Distribution Width 18.7 % (11.5-14.5); Segmented Neutrophils % 69.9 %; White Blood Count 8.6 K/mcL (4.3-11.1)
[2021-05-22 01:48] LABS: Calcium 7.9 mg/dL (8.6-10.3); Potassium 3.2 mEq/L (3.5-5.1)
[2021-05-22] MEDS: *HR* Heparin 5,000 UNIT/ML VIAL SQ SCH ×3 (04:49→21:20)
[2021-05-22] MEDS ORDERED: Albuterol 2.5 MG/3 ML NEBULIZER IH ONE (09:04)
[2021-05-22] MEDS: allopurinoL 100 MG TABLET PO SCH (09:10)
[2021-05-22] MEDS: Colchicine 0.6 MG TABLET PO SCH (09:10)
[2021-05-22] MEDS: Folic Acid 1 MG TABLET PO SCH (09:10)
[2021-05-22] MEDS: carvediloL 6.25 MG TABLET PO SCH ×2 (09:10→17:30)
[2021-05-22] MEDS: cefTRIAXone 1,000 MG in 0.9 % Sodium Chloride 10 ML IVP SCH (09:11)
[2021-05-22] MEDS: Finasteride 5 MG TABLET PO SCH (09:11)
[2021-05-22] MEDS: Lactulose Oral Soln 20 GM/30 ML UDC PO SCH (09:11)
[2021-05-22] MEDS: Cyanocobalamin (B-12) 1,000 MCG TABLET PO SCH (09:12)
[2021-05-22] MEDS ORDERED: Potassium Chloride Elixir 20 MEQ/15 ML UDC PO ONE ×2 (11:32→12:45)
[2021-05-22] MEDS ORDERED: 0.9 % Sodium Chloride 1,000 ML IVC SCH (11:45)
[2021-05-22] MEDS: D5% in 0.9% NACL 1,000 ML IVC SCH ×2 (13:18→22:07)
[2021-05-23] MEDS ORDERED: 0.9 % Sodium Chloride 1,000 ML IV ONE (04:12)
[2021-05-23 05:00] LABS: Potassium 3.7 mEq/L (3.5-5.1)
[2021-05-23] MEDS: *HR* Heparin 5,000 UNIT/ML VIAL SQ SCH ×3 (06:20→21:21)
[2021-05-23] MEDS: D5% in 0.9% NACL 1,000 ML IVC SCH (08:55)
[2021-05-23] MEDS: cefTRIAXone 1,000 MG in 0.9 % Sodium Chloride 10 ML IVP SCH (09:18)
[2021-05-23] MEDS: Folic Acid 1 MG TABLET PO SCH (09:25)
[2021-05-23] MEDS: Lactulose Oral Soln 20 GM/30 ML UDC PO SCH (09:25)
[2021-05-23] MEDS: Finasteride 5 MG TABLET PO SCH (09:25)
[2021-05-23] MEDS: allopurinoL 100 MG TABLET PO SCH (09:26)
[2021-05-23] MEDS: Cyanocobalamin (B-12) 1,000 MCG TABLET PO SCH (09:26)
[2021-05-23] MEDS ORDERED: Furosemide 40 MG/4 ML VIAL IVP ONE (09:39)
[2021-05-23 09:57] LABS: ABG Base Excess -4 mEq/L (-2 to 3); ABG HCO3 23 mEq/L (21-27); ABG Oxygen Saturation 98 % (95-98); ABG PCO2 50 mmHg (35-45); ABG PH 7.27 pH Units (7.32-7.45); ABG PO2 121 mmHg (85-104); ABG TCO2 24 mEq/L (20-26)
[2021-05-23] MEDS ORDERED: Albumin 25% 25gram/100mL 25 GM/100 ML IV.SOLN IVPB SCH (10:10)
[2021-05-23 10:14] LABS: C-Reactive Protein 151 mg/L (Less than 10)
[2021-05-23 10:34] LABS: Creatine Kinase 266 Units/L (30-223)
[2021-05-23] MEDS: Albumin 25% 25gram/100mL 25 GM/100 ML IV.SOLN IVPB SCH ×2 (11:50→16:34)
[2021-05-23] MEDS ORDERED: EPINEPHrine 1 MG/ML VIAL IV ONE (13:19)
[2021-05-23] MEDS ORDERED: Vancomycin 2,000 MG/520 ML IV.SOLN IVPB ONE (13:19)
[2021-05-23] MEDS ORDERED: Norepinephrine 4 MG/254 ML in 0.9% Sodium Chloride IVC ONE (13:19)
[2021-05-23] MEDS ORDERED: *HR* Atropine Sulfate 1 MG/10 ML SYRINGE IV ONE (13:19)
[2021-05-23] MEDS ORDERED: *HR* EPINEPHrine 1 MG/10 ML SYRINGE IVP ONE (13:19)
[2021-05-23 13:47] LABS: Basophils % 0.3 %; Eosinophils # 0.5 K/mcL (0.0-0.6); Eosinophils % 6.8 %; Hematocrit 27.5 % (37.5-50.1); Hemoglobin 7.8 g/dL (12.9-16.9); Immature Granulocytes % 0.6 % (0-4); Lymphocytes # 1.2 K/mcL (0.6-4.6); Lymphocytes % 15.2 %; Mean Corpuscular HGB Conc 28.4 g/dL (31.6-35.5); Mean Corpuscular Hemoglobin 27.3 pg (28.0-33.3); Mean Corpuscular Volume 96.2 fL (83.0-100.0); Mean Platelet Volume 10.8 fL (9.4-12.4); Monocytes # 0.8 K/mcL (0.0-1.3); Monocytes % 9.6 %; Platelet Count 247 K/mcL (140-400); Red Blood Count 2.86 M/mcL (4.19-5.50); Red Cell Distribution Width 19.1 % (11.5-14.5); Segmented Neutrophils % 67.5 %; White Blood Count 7.9 K/mcL (4.3-11.1)
[2021-05-23 13:48] LABS: Neutrophils # 5.3 K/mcL (1.6-8.9)
[2021-05-23] MEDS ORDERED: Vancomycin 1,750 MG in 0.9 % Sodium Chloride 250 ML IVPB SCH (14:00)
[2021-05-23 14:10] LABS: Albumin 2.5 g/dL (3.5-5.7); Albumin/Globulin Ratio 0.8 (1.1-2.2); Bilirubin,Total 0.3 mg/dL (0.3-1.0); Calcium 8.2 mg/dL (8.6-10.3); Globulin 3.3 g/dL (2.4-3.5); Potassium 3.8 mEq/L (3.5-5.1); Total Protein 5.8 g/dL (6.4-8.9)
[2021-05-23] MEDS ORDERED: *HR* Etomidate 20 MG/10 ML AMPUL IVP ONE (14:29)
[2021-05-23] MEDS ORDERED: *HR* Rocuronium Bromide 50 MG/5 ML VIAL IVP ONE (14:29)
[2021-05-23] MEDS ORDERED: *HR* Midazolam HCl 5 MG/5 ML VIAL IVP ONE (14:29)
[2021-05-23] MEDS ORDERED: Sodium Bicarbonate 50 MEQ in 0.45 % Sodium Chloride 1,000 ML IVC SCH (15:30)
[2021-05-23] MEDS ORDERED: Ipratropium/Albuterol Neb 3 ML ONE (16:34)
[2021-05-23] MEDS: Ipratropium/Albuterol Neb 3 ML IH SCH ×2 (16:39→20:17)
[2021-05-23] MEDS ORDERED: diazePAM 10 MG/2 ML SYRINGE IVP ONE (22:21)
[2021-05-23] MEDS ORDERED: D5% in Water 250 ML ONE (23:21)
[2021-05-23] MEDS ORDERED: Artificial Tears SOLN 15 ML BOTTLE BOTH EYES PRN (23:40)
[2021-05-23 23:48] LABS: Basophils # 0.1 K/mcL (0.0-0.2); Basophils % 0.5 %; Eosinophils # 0.6 K/mcL (0.0-0.6); Hematocrit 28.9 % (37.5-50.1); Hemoglobin 8.2 g/dL (12.9-16.9); Immature Granulocytes % 3.2 % (0-4); Lymphocytes # 2.4 K/mcL (0.6-4.6); Mean Corpuscular HGB Conc 28.4 g/dL (31.6-35.5); Mean Corpuscular Volume 98.6 fL (83.0-100.0); Monocytes # 0.7 K/mcL (0.0-1.3); Neutrophils # 6.3 K/mcL (1.6-8.9); Platelet Count 259 K/mcL (140-400); Red Blood Count 2.93 M/mcL (4.19-5.50); Red Cell Distribution Width 19.3 % (11.5-14.5); Segmented Neutrophils % 60.3 %; White Blood Count 10.5 K/mcL (4.3-11.1)
[2021-05-23 23:49] LABS: Hypochromasia Present (Not Present)
[2021-05-23 23:58] LABS: INR 1.2; Prothrombin Time 13.1 Seconds (9.4-12.1)
[2021-05-24] LABS: Activated Partial Thrombo Time 37.5 Seconds (26.0-36.0)
[2021-05-24 00:07] LABS: Albumin 2.8 g/dL (3.5-5.7); Albumin/Globulin Ratio 0.8 (1.1-2.2); Bilirubin,Total 0.3 mg/dL (0.3-1.0); Calcium 8.6 mg/dL (8.6-10.3); Globulin 3.3 g/dL (2.4-3.5); Magnesium 1.7 mg/dL (1.6-2.6); Phosphorous 5.4 mg/dL (2.7-4.5); Potassium 3.9 mEq/L (3.5-5.1); Total Protein 6.1 g/dL (6.4-8.9)
[2021-05-24 00:25] LABS: ABG Base Excess -7 mEq/L (-2 to 3); ABG HCO3 19 mEq/L (21-27); ABG Oxygen Saturation 99 % (95-98); ABG PCO2 37 mmHg (35-45); ABG PH 7.32 pH Units (7.32-7.45); ABG PO2 149 mmHg (85-104); ABG TCO2 20 mEq/L (20-26); Blood Gas VT 500 cc
[2021-05-24] MEDS: Artificial Tears SOLN 15 ML BOTTLE BOTH EYES SCH ×7 (00:51→23:22)
[2021-05-24] MEDS: Albumin 25% 25gram/100mL 25 GM/100 ML IV.SOLN IVPB SCH ×4 (00:55→23:22)
[2021-05-24] MEDS: FentaNYL (PF) 1,000 MCG/100 ML IV.SOLN IVC SCH ×2 (01:40→17:46)
[2021-05-24] MEDS: Norepinephrine 4 MG/254 ML IV.SOLN IVC SCH ×4 (01:44→07:27)
[2021-05-24] MEDS: Ipratropium/Albuterol Neb 3 ML IH SCH ×4 (03:55→20:10)
[2021-05-24 04:07] LABS: ABG Base Excess -6 mEq/L (-2 to 3); ABG HCO3 18 mEq/L (21-27); ABG Oxygen Saturation 99 % (95-98); ABG PCO2 33 mmHg (35-45); ABG PH 7.36 pH Units (7.32-7.45); ABG PO2 166 mmHg (85-104); ABG TCO2 20 mEq/L (20-26); Blood Gas VT 500 cc
[2021-05-24 04:28] LABS: Hematocrit 25.4 % (37.5-50.1); Hemoglobin 7.4 g/dL (12.9-16.9); Mean Corpuscular HGB Conc 29.1 g/dL (31.6-35.5); Mean Corpuscular Volume 96.2 fL (83.0-100.0); Mean Platelet Volume 10.3 fL (9.4-12.4); Platelet Count 235 K/mcL (140-400); Red Blood Count 2.64 M/mcL (4.19-5.50); Red Cell Distribution Width 19.2 % (11.5-14.5); White Blood Count 9.3 K/mcL (4.3-11.1)
[2021-05-24 04:31] LABS: VBG Ionized Calcium 1.15 mmol/L (1.15-1.35)
[2021-05-24 04:47] LABS: Albumin 2.8 g/dL (3.5-5.7); Bilirubin,Total 0.5 mg/dL (0.3-1.0); Calcium 8.3 mg/dL (8.6-10.3); Globulin 2.9 g/dL (2.4-3.5); Phosphorous 3.3 mg/dL (2.7-4.5); Potassium 3.5 mEq/L (3.5-5.1); Total Protein 5.7 g/dL (6.4-8.9)
[2021-05-24] MEDS: *HR* Heparin 5,000 UNIT/ML VIAL SQ SCH ×3 (06:18→22:30)
[2021-05-24] MEDS: Pantoprazole 40 MG VIAL IVP SCH (08:00)
[2021-05-24] MEDS: Lactulose Oral Soln 20 GM/30 ML UDC PO SCH (08:01)
[2021-05-24] MEDS: Chlorhexidine Rinse 15 ML MOUTHWASH MM SCH ×2 (08:01→19:35)
[2021-05-24] MEDS: Cefepime HCl 1,000 MG in 0.9 % Sodium Chloride 10 ML IVP SCH (08:01)
[2021-05-24] MEDS: Folic Acid 1 MG TABLET PO SCH (08:02)
[2021-05-24] MEDS: Finasteride 5 MG TABLET PO SCH (08:02)
[2021-05-24] MEDS: allopurinoL 100 MG TABLET PO SCH (08:02)
[2021-05-24] MEDS: Cyanocobalamin (B-12) 1,000 MCG TABLET PO SCH (08:02)
[2021-05-24] MEDS: Norepinephrine 8 MG/250 ML IV.SOLN IVC SCH ×2 (08:39→11:12)
[2021-05-24 10:53] LABS: Complement C3 125 mg/dL (87-200)
[2021-05-24] MEDS ORDERED: 0.9 % Sodium Chloride 1,000 ML ONE (13:23)
[2021-05-24] MEDS: Norepinephrine 32 MG/250 ML IV.SOLN IVC SCH (14:53)
[2021-05-24] MEDS ORDERED: Perflutren Lipid Microsphere 1.3 ML in 0.9 % Sodium Chloride 8.7 ML IVP PRN (15:11)
[2021-05-24] MEDS: Hydrocortisone Sodium Succ 100 MG/2 ML VIAL IVP SCH ×2 (15:15→19:35)
[2021-05-24 15:40] LABS: Hematocrit 27.6 % (37.5-50.1); Hemoglobin 8.2 g/dL (12.9-16.9)
[2021-05-24 16:01] LABS: Calcium 8.5 mg/dL (8.6-10.3); Potassium 3.4 mEq/L (3.5-5.1)
[2021-05-24 18:06] LABS: Bilirubin,Urine Negative (Negative); Blood,Urine Moderate (Negative); Clarity,Urine Clear (Clear); Color,Urine Light-Yellow (Yellow); Glucose,Urine (UA) Normal (Normal); Hyaline Casts,Urine Few per lpf (None Seen); Ketones,Urine Trace mg/dL (Negative); Leukocyte Esterase,Urine Small (Negative); Mucus,Urine Few per lpf (None-Few); Nitrite,Urine Negative (Negative); Protein,Urine 70 mg/dL (Neg-Trace); Specific Gravity,Urine 1.014 (1.010-1.025); Squamous Epithelial Cell,Urine Few per hpf (None-Few); Urobilinogen,Urine Normal (Normal)
[2021-05-25] MEDS: Hydrocortisone Sodium Succ 100 MG/2 ML VIAL IVP SCH ×2 (03:51→08:48)
[2021-05-25 03:52] LABS: VBG Ionized Calcium 1.18 mmol/L (1.15-1.35)
[2021-05-25] MEDS: Artificial Tears SOLN 15 ML BOTTLE BOTH EYES SCH ×5 (03:52→21:04)
[2021-05-25 03:56] LABS: Basophils % 0.3 %; Eosinophils % 0.1 %; Hematocrit 28.6 % (37.5-50.1); Hemoglobin 8.3 g/dL (12.9-16.9); Immature Granulocytes % 1.2 % (0-4); Lymphocytes # 0.7 K/mcL (0.6-4.6); Lymphocytes % 7.2 %; Mean Corpuscular Hemoglobin 27.4 pg (28.0-33.3); Mean Corpuscular Volume 94.4 fL (83.0-100.0); Mean Platelet Volume 11.1 fL (9.4-12.4); Monocytes # 0.3 K/mcL (0.0-1.3); Monocytes % 2.9 %; Neutrophils # 8.8 K/mcL (1.6-8.9); Platelet Count 244 K/mcL (140-400); Red Blood Count 3.03 M/mcL (4.19-5.50); Red Cell Distribution Width 19.3 % (11.5-14.5); Segmented Neutrophils % 88.3 %
[2021-05-25 04:09] LABS: Albumin 3.3 g/dL (3.5-5.7); Albumin/Globulin Ratio 1.1 (1.1-2.2); Bilirubin,Direct 0.1 mg/dL (0.0-0.2); Bilirubin,Indirect 0.4 mg/dL (0.0-1.0); Bilirubin,Total 0.5 mg/dL (0.3-1.0); Globulin 2.9 g/dL (2.4-3.5); Magnesium 1.9 mg/dL (1.6-2.6); Potassium 3.9 mEq/L (3.5-5.1); Total Protein 6.2 g/dL (6.4-8.9)
[2021-05-25] MEDS: Ipratropium/Albuterol Neb 3 ML IH SCH ×4 (04:10→21:02)
[2021-05-25 04:19] LABS: ABG Base Excess -12 mEq/L (-2 to 3); ABG HCO3 13 mEq/L (21-27); ABG Oxygen Saturation 96 % (95-98); ABG PCO2 29 mmHg (35-45); ABG PH 7.27 pH Units (7.32-7.45); ABG PO2 90 mmHg (85-104); ABG TCO2 14 mEq/L (20-26); Blood Gas VT 500 cc
[2021-05-25] MEDS ORDERED: Sodium Bicarbonate 50 MEQ in 0.45 % Sodium Chloride 1,000 ML IVC SCH (05:00)
[2021-05-25] MEDS: *HR* Heparin 5,000 UNIT/ML VIAL SQ SCH ×3 (06:32→21:03)
[2021-05-25] MEDS: Norepinephrine 32 MG/250 ML IV.SOLN IVC SCH (08:15)
[2021-05-25] MEDS: FentaNYL (PF) 1,000 MCG/100 ML IV.SOLN IVC SCH (08:19)
[2021-05-25] MEDS: allopurinoL 100 MG TABLET PO SCH (08:44)
[2021-05-25] MEDS: Folic Acid 1 MG TABLET PO SCH (08:44)
[2021-05-25] MEDS: Chlorhexidine Rinse 15 ML MOUTHWASH MM SCH ×2 (08:45→21:03)
[2021-05-25] MEDS: Lactulose Oral Soln 20 GM/30 ML UDC PO SCH (08:45)
[2021-05-25] MEDS: Cefepime HCl 1,000 MG in 0.9 % Sodium Chloride 10 ML IVP SCH (08:45)
[2021-05-25] MEDS: Pantoprazole 40 MG VIAL IVP SCH (08:47)
[2021-05-25] MEDS: Cyanocobalamin (B-12) 1,000 MCG TABLET PO SCH (08:48)
[2021-05-25] MEDS: Albumin 25% 25gram/100mL 25 GM/100 ML IV.SOLN IVPB SCH (08:49)
[2021-05-25] MEDS: Sodium Bicarbonate 75 MEQ in 0.45 % Sodium Chloride 1,000 ML IVC SCH (10:49)
[2021-05-25 11:44] LABS: Calcium 9.3 mg/dL (8.6-10.3); Potassium 3.8 mEq/L (3.5-5.1)
[2021-05-25] MEDS ORDERED: Dexmedetomidine HCl 400 MCG/100 ML MLS IVC ONE (16:04)
[2021-05-25] MEDS: Dexmedetomidine HCl 400 MCG/100 ML MLS IVC SCH (16:05)
[2021-05-25 20:10] LABS: ABG Base Excess -10 mEq/L (-2 to 3); ABG HCO3 21 mEq/L (21-27); ABG Oxygen Saturation 98 % (95-98); ABG PCO2 72 mmHg (35-45); ABG PH 7.06 pH Units (7.32-7.45); ABG PO2 146 mmHg (85-104); ABG TCO2 23 mEq/L (20-26); Blood Gas Modality BiLevel
[2021-05-25 21:03] LABS: ABG Base Excess -9 mEq/L (-2 to 3); ABG HCO3 19 mEq/L (21-27); ABG Oxygen Saturation 98 % (95-98); ABG PCO2 45 mmHg (35-45); ABG PH 7.23 pH Units (7.32-7.45); ABG PO2 117 mmHg (85-104); ABG TCO2 20 mEq/L (20-26); Blood Gas VT 550 cc
[2021-05-25 23:44] LABS: ABG Base Excess -7 mEq/L (-2 to 3); ABG HCO3 19 mEq/L (21-27); ABG Oxygen Saturation 100 % (95-98); ABG PCO2 38 mmHg (35-45); ABG PO2 190 mmHg (85-104); ABG TCO2 20 mEq/L (20-26); Blood Gas Modality AVAPS; Blood Gas VT 550 cc
[2021-05-26] MEDS: Artificial Tears SOLN 15 ML BOTTLE BOTH EYES SCH ×7 (00:46→23:48)
[2021-05-26] MEDS: Ipratropium/Albuterol Neb 3 ML IH SCH ×4 (04:04→21:33)
[2021-05-26 04:11] LABS: ABG Base Excess -7 mEq/L (-2 to 3); ABG HCO3 18 mEq/L (21-27); ABG Oxygen Saturation 93 % (95-98); ABG PCO2 35 mmHg (35-45); ABG PH 7.33 pH Units (7.32-7.45); ABG PO2 72 mmHg (85-104); ABG TCO2 19 mEq/L (20-26); Blood Gas VT 550 cc
[2021-05-26 04:43] LABS: Basophils % 0.2 %; Hematocrit 27.9 % (37.5-50.1); Hemoglobin 8.3 g/dL (12.9-16.9); Immature Granulocytes % 0.9 % (0-4); Lymphocytes # 0.8 K/mcL (0.6-4.6); Lymphocytes % 4.8 %; Mean Corpuscular HGB Conc 29.7 g/dL (31.6-35.5); Mean Corpuscular Hemoglobin 27.6 pg (28.0-33.3); Mean Corpuscular Volume 92.7 fL (83.0-100.0); Mean Platelet Volume 11.4 fL (9.4-12.4); Monocytes # 0.7 K/mcL (0.0-1.3); Monocytes % 4.5 %; Neutrophils # 14.8 K/mcL (1.6-8.9); Nucleated Red Blood Cells 0.2 /100 WBC (0); Platelet Count 312 K/mcL (140-400); Red Blood Count 3.01 M/mcL (4.19-5.50); Red Cell Distribution Width 19.3 % (11.5-14.5); Segmented Neutrophils % 89.6 %
[2021-05-26 04:47] LABS: White Blood Count 16.5 K/mcL (4.3-11.1)
[2021-05-26 05:03] LABS: Albumin 3.2 g/dL (3.5-5.7); Albumin/Globulin Ratio 1.1 (1.1-2.2); Bilirubin,Direct 0.1 mg/dL (0.0-0.2); Bilirubin,Indirect 0.4 mg/dL (0.0-1.0); Bilirubin,Total 0.5 mg/dL (0.3-1.0); Calcium 9.3 mg/dL (8.6-10.3); Magnesium 1.9 mg/dL (1.6-2.6); Phosphorous 3.5 mg/dL (2.7-4.5); Potassium 3.4 mEq/L (3.5-5.1); Total Protein 6.2 g/dL (6.4-8.9)
[2021-05-26] MEDS: *HR* Heparin 5,000 UNIT/ML VIAL SQ SCH ×3 (05:31→20:51)
[2021-05-26] MEDS: Norepinephrine 32 MG/250 ML IV.SOLN IVC SCH (07:30)
[2021-05-26] MEDS: Sodium Bicarbonate 75 MEQ in 0.45 % Sodium Chloride 1,000 ML IVC SCH (08:24)
[2021-05-26] MEDS: Dexmedetomidine HCl 400 MCG/100 ML MLS IVC SCH ×2 (08:25→19:09)
[2021-05-26] MEDS: Pantoprazole 40 MG VIAL IVP SCH (08:29)
[2021-05-26] MEDS: Cefepime HCl 1,000 MG in 0.9 % Sodium Chloride 10 ML IVP SCH (08:30)
[2021-05-26] MEDS ORDERED: Furosemide 40 MG/4 ML VIAL IVP ONE (09:19)
[2021-05-26] MEDS: allopurinoL 100 MG TABLET PO SCH (09:48)
[2021-05-26] MEDS: Cyanocobalamin (B-12) 1,000 MCG TABLET PO SCH (09:48)
[2021-05-26] MEDS: Lactulose Oral Soln 20 GM/30 ML UDC PO SCH (09:48)
[2021-05-26] MEDS: Folic Acid 1 MG TABLET PO SCH (09:48)
[2021-05-26] MEDS: Chlorhexidine Rinse 15 ML MOUTHWASH MM SCH ×2 (09:48→20:51)
[2021-05-26] MEDS ORDERED: Albumin 25% 25gram/100mL 25 GM/100 ML IV.SOLN ONE (09:51)
[2021-05-26] MEDS: Albumin 25% 25gram/100mL 25 GM/100 ML IV.SOLN IVPB SCH ×3 (09:55→23:49)
[2021-05-26 10:09] LABS: Kappa Qnt Free Light Chains 127.77 mg/L (3.30-19.40); Lambda Qnt Free Light Chains 100.74 mg/L (5.71-26.30)
[2021-05-26] MEDS: Furosemide 240 MG in 0.9 % Sodium Chloride 96 ML IVC SCH (14:06)
[2021-05-26 17:20] LABS: ABG Base Excess -7 mEq/L (-2 to 3); ABG HCO3 19 mEq/L (21-27); ABG Oxygen Saturation 81 % (95-98); ABG PCO2 42 mmHg (35-45); ABG PH 7.27 pH Units (7.32-7.45); ABG PO2 51 mmHg (85-104); ABG TCO2 21 mEq/L (20-26)
[2021-05-26] MEDS: FentaNYL (PF) 1,000 MCG/100 ML IV.SOLN IVC SCH (23:48)
[2021-05-27] MEDS ORDERED: *HR* Etomidate 20 MG/10 ML AMPUL IVP ONE (01:00)
[2021-05-27] MEDS ORDERED: *HR* Midazolam HCl 5 MG/5 ML VIAL IVP ONE (01:00)
[2021-05-27] MEDS: Artificial Tears SOLN 15 ML BOTTLE BOTH EYES SCH ×8 (02:52→23:58)
[2021-05-27] MEDS: Ipratropium/Albuterol Neb 3 ML IH SCH ×4 (03:46→21:45)
[2021-05-27 04:01] LABS: VBG Ionized Calcium 1.28 mmol/L (1.15-1.35)
[2021-05-27 04:23] LABS: Hematocrit 27.3 % (37.5-50.1); Hemoglobin 8.1 g/dL (12.9-16.9); Mean Corpuscular HGB Conc 29.7 g/dL (31.6-35.5); Mean Corpuscular Hemoglobin 27.5 pg (28.0-33.3); Mean Corpuscular Volume 92.5 fL (83.0-100.0); Mean Platelet Volume 11.6 fL (9.4-12.4); Nucleated Red Blood Cells 0.3 /100 WBC (0); Platelet Count 204 K/mcL (140-400); Red Blood Count 2.95 M/mcL (4.19-5.50); Red Cell Distribution Width 19.5 % (11.5-14.5); White Blood Count 11.9 K/mcL (4.3-11.1)
[2021-05-27 04:37] LABS: Albumin 3.3 g/dL (3.5-5.7); Albumin/Globulin Ratio 1.2 (1.1-2.2); Bilirubin,Direct 0.2 mg/dL (0.0-0.2); Bilirubin,Indirect 0.4 mg/dL (0.0-1.0); Bilirubin,Total 0.6 mg/dL (0.3-1.0); Calcium 9.5 mg/dL (8.6-10.3); Globulin 2.8 g/dL (2.4-3.5); Magnesium 1.9 mg/dL (1.6-2.6); Phosphorous 3.3 mg/dL (2.7-4.5); Total Protein 6.1 g/dL (6.4-8.9)
[2021-05-27 05:09] LABS: ABG Base Excess -8 mEq/L (-2 to 3); ABG HCO3 20 mEq/L (21-27); ABG Oxygen Saturation 68 % (95-98); ABG PCO2 46 mmHg (35-45); ABG PH 7.23 pH Units (7.32-7.45); ABG PO2 42 mmHg (85-104); ABG TCO2 21 mEq/L (20-26); Blood Gas Modality AVAPS; Blood Gas VT 600 cc
[2021-05-27] MEDS ORDERED: Artificial Tears SOLN 15 ML BOTTLE BOTH EYES PRN (05:11)
[2021-05-27] MEDS ORDERED: FentaNYL (PF) 1,000 MCG/100 ML IV.SOLN IVC SCH (05:15)
[2021-05-27] MEDS: FentaNYL (PF) 1,000 MCG/100 ML IV.SOLN IVC SCH ×2 (05:21→20:16)
[2021-05-27 05:34] LABS: Anisocytosis 1+ (Not Present); Lymphocytes # 1.7 K/mcL (0.6-4.6); Monocytes # 0.2 K/mcL (0.0-1.3); Platelet Estimate Normal (Normal)
[2021-05-27] MEDS ORDERED: Albumin 25% 25gram/100mL 25 GM/100 ML IV.SOLN ONE (05:35)
[2021-05-27] MEDS ORDERED: Albumin Human 5% 12.5 GM/250 ML IV.SOLN ONE (05:36)
[2021-05-27] MEDS: *HR* Heparin 5,000 UNIT/ML VIAL SQ SCH ×3 (06:08→19:54)
[2021-05-27 06:46] LABS: ABG Base Excess -9 mEq/L (-2 to 3); ABG HCO3 18 mEq/L (21-27); ABG Oxygen Saturation 83 % (95-98); ABG PCO2 46 mmHg (35-45); ABG PH 7.21 pH Units (7.32-7.45); ABG PO2 58 mmHg (85-104); ABG TCO2 20 mEq/L (20-26); Blood Gas Modality AF; Blood Gas VT 500 cc
[2021-05-27] MEDS ORDERED: Potassium Chloride 40 MEQ/200 ML BAG IVPB PRN (07:42)
[2021-05-27] MEDS ORDERED: Potassium Chloride Elixir 20 MEQ/15 ML UDC GTUBE ONE (07:59)
[2021-05-27] MEDS: Lactulose Oral Soln 20 GM/30 ML UDC PO SCH (08:08)
[2021-05-27] MEDS: Chlorhexidine Rinse 15 ML MOUTHWASH MM SCH ×2 (08:09→19:52)
[2021-05-27] MEDS: Pantoprazole 40 MG VIAL IVP SCH (08:09)
[2021-05-27] MEDS: Cefepime HCl 1,000 MG in 0.9 % Sodium Chloride 10 ML IVP SCH (08:09)
[2021-05-27] MEDS: Cyanocobalamin (B-12) 1,000 MCG TABLET PO SCH (08:10)
[2021-05-27] MEDS: Albumin 25% 25gram/100mL 25 GM/100 ML IV.SOLN IVPB SCH ×2 (08:10→15:39)
[2021-05-27] MEDS: allopurinoL 100 MG TABLET PO SCH (08:10)
[2021-05-27] MEDS: Folic Acid 1 MG TABLET PO SCH (08:10)
[2021-05-27] MEDS: Dexmedetomidine HCl 400 MCG/100 ML MLS IVC SCH ×2 (08:30→20:50)
[2021-05-27 08:50] LABS: Alpha 2 Globulin (PEP) 0.68 g/dL (0.48-1.05); Beta Globulin (PEP) 0.62 g/dL (0.48-1.10)
[2021-05-27] MEDS ORDERED: Chlorhexidine Rinse 15 ML MOUTHWASH MM SCH (09:00)
[2021-05-27 09:56] LABS: ANA IgG by ELISA NONE DETECTED (None Detected)
[2021-05-27 10:11] LABS: IFE Reflexed NOT DONE
[2021-05-27] MEDS: Furosemide 240 MG in 0.9 % Sodium Chloride 96 ML IVC SCH (10:54)
[2021-05-27] MEDS: Norepinephrine 32 MG/250 ML IV.SOLN IVC SCH ×2 (13:05→20:16)
[2021-05-27] MEDS ORDERED: *HR* Heparin 5,000 UNIT/ML VIAL ONE (13:09)
[2021-05-27] MEDS ORDERED: 0.9 % Sodium Chloride 2,000 ML ONE (14:23)
[2021-05-27] MEDS: PrismaSATE BGK 4/2.5 5,000 ML CRRT SCH ×5 (14:57→21:29)
[2021-05-27] MEDS ORDERED: Phenylephrine 20 MG in 0.9 % Sodium Chloride 250 ML IVC SCH (15:30)
[2021-05-27] MEDS: Hydrocortisone Sodium Succ 100 MG/2 ML VIAL IVP SCH ×2 (16:53→23:57)
[2021-05-27 17:09] LABS: ANCA IFA Titer <1:20 (<1:20)
[2021-05-27] MEDS ORDERED: Phenylephrine 100 MG in 0.9 % Sodium Chloride 250 ML IVC SCH (20:15)
[2021-05-27 20:43] LABS: Calcium 9.2 mg/dL (8.6-10.3); Potassium 3.7 mEq/L (3.5-5.1)
[2021-05-27] MEDS: Phenylephrine 100 MG in 0.9 % Sodium Chloride 250 ML IVC SCH (20:46)
[2021-05-27] MEDS: *HR* Heparin 5,000 UNIT/ML VIAL IVP PRN (23:25)
[2021-05-28] MEDS ORDERED: 0.9 % Sodium Chloride 1,000 ML ONE ×2 (00:42→11:49)
[2021-05-28] MEDS: Norepinephrine 32 MG/250 ML IV.SOLN IVC SCH ×3 (02:13→15:09)
[2021-05-28] MEDS: PrismaSATE BGK 4/2.5 5,000 ML CRRT SCH ×11 (02:59→23:30)
[2021-05-28] MEDS: Artificial Tears SOLN 15 ML BOTTLE BOTH EYES SCH ×6 (03:00→22:43)
[2021-05-28] MEDS: Ipratropium/Albuterol Neb 3 ML IH SCH ×4 (03:20→20:01)
[2021-05-28 03:26] LABS: VBG Ionized Calcium 1.17 mmol/L (1.15-1.35)
[2021-05-28 04:06] LABS: Basophils # 0.1 K/mcL (0.0-0.2); Basophils % 0.4 %; Hematocrit 26.9 % (37.5-50.1); Hemoglobin 8.4 g/dL (12.9-16.9); Lymphocytes # 0.8 K/mcL (0.6-4.6); Lymphocytes % 2.9 %; Mean Corpuscular HGB Conc 31.2 g/dL (31.6-35.5); Mean Corpuscular Hemoglobin 28.2 pg (28.0-33.3); Mean Corpuscular Volume 90.3 fL (83.0-100.0); Mean Platelet Volume 11.5 fL (9.4-12.4); Monocytes # 0.8 K/mcL (0.0-1.3); Monocytes % 2.6 %; Nucleated Red Blood Cells 1.2 /100 WBC (0); Platelet Count 262 K/mcL (140-400); Red Blood Count 2.98 M/mcL (4.19-5.50); Red Cell Distribution Width 20.2 % (11.5-14.5); Segmented Neutrophils % 92.1 %; White Blood Count 28.7 K/mcL (4.3-11.1)
[2021-05-28 04:07] LABS: Neutrophils # 26.4 K/mcL (1.6-8.9)
[2021-05-28 04:22] LABS: Albumin 3.5 g/dL (3.5-5.7); Albumin/Globulin Ratio 1.2 (1.1-2.2); Calcium 8.9 mg/dL (8.6-10.3); Globulin 2.9 g/dL (2.4-3.5); Phosphorous 2.4 mg/dL (2.7-4.5); Potassium 4.4 mEq/L (3.5-5.1); Total Protein 6.4 g/dL (6.4-8.9)
[2021-05-28] MEDS: *HR* Heparin 5,000 UNIT/ML VIAL SQ SCH ×3 (05:06→22:43)
[2021-05-28] MEDS: Hydrocortisone Sodium Succ 100 MG/2 ML VIAL IVP SCH ×4 (05:07→22:43)
[2021-05-28] MEDS: Phenylephrine 100 MG in 0.9 % Sodium Chloride 250 ML IVC SCH ×2 (05:07→06:08)
[2021-05-28 05:08] LABS: ABG Base Excess -6 mEq/L (-2 to 3); ABG HCO3 21 mEq/L (21-27); ABG Oxygen Saturation 99 % (95-98); ABG PCO2 43 mmHg (35-45); ABG PH 7.29 pH Units (7.32-7.45); ABG PO2 157 mmHg (85-104); ABG TCO2 22 mEq/L (20-26); Blood Gas Modality AF; Blood Gas VT 500 cc
[2021-05-28] MEDS: FentaNYL (PF) 1,000 MCG/100 ML IV.SOLN IVC SCH ×2 (05:33→15:09)
[2021-05-28 07:25] LABS: Adenovirus Not Detected (Not Detect); Bordetella Pertussis Not Detected (Not Detect); Chlamydophila pneumoniae Not Detected (Not Detect); Coronavirus 229E Not Detected (Not Detect); Coronavirus HKU1 Not Detected (Not Detect); Coronavirus NL63 Not Detected (Not Detect); Coronavirus OC43 Not Detected (Not Detect); Human Metapneumovirus Not Detected (Not Detect); Human Rhinovirus/Enterovirus Not Detected (Not Detect); Influenza A Subtype 2009 H1 Not Detected (Not Detect); Influenza B Not Detected (Not Detect); Mycoplasma pneumoniae Not Detected (Not Detect); Parainfluenza Virus 1 Not Detected (Not Detect); Parainfluenza Virus 2 Not Detected (Not Detect); Parainfluenza Virus 3 Not Detected (Not Detect); Parainfluenza Virus 4 Not Detected (Not Detect); Respiratory Syncytial Virus Not Detected (Not Detect); SARS-CoV-2 Not Detected (Not Detect)
[2021-05-28] MEDS: Dexmedetomidine HCl 400 MCG/100 ML MLS IVC SCH (08:00)
[2021-05-28] MEDS: Lactulose Oral Soln 20 GM/30 ML UDC PO SCH (08:18)
[2021-05-28] MEDS: Pantoprazole 40 MG VIAL IVP SCH (08:18)
[2021-05-28] MEDS: allopurinoL 100 MG TABLET PO SCH (08:18)
[2021-05-28] MEDS: Chlorhexidine Rinse 15 ML MOUTHWASH MM SCH ×2 (08:18→19:28)
[2021-05-28] MEDS: Cefepime HCl 1,000 MG in 0.9 % Sodium Chloride 10 ML IVP SCH (08:18)
[2021-05-28] MEDS: Folic Acid 1 MG TABLET PO SCH (08:18)
[2021-05-28] MEDS: Cyanocobalamin (B-12) 1,000 MCG TABLET PO SCH (08:18)
[2021-05-28 10:37] LABS: ANCA IFA Pattern NONE DETECTED (None Detected); Serine Protease-3 Antibody 2 AU/mL (0-19)
[2021-05-28] MEDS ORDERED: Vancomycin 1,750 MG in 0.9 % Sodium Chloride 250 ML IVPB SCH (11:00)
[2021-05-28] MEDS ORDERED: Vancomycin 1,750 MG/517.5 ML IV.SOLN IVPB ONE (11:01)
[2021-05-28] MEDS ORDERED: 0.9 % Sodium Chloride 2,000 ML ONE (11:24)
[2021-05-28] MEDS: Furosemide 240 MG in 0.9 % Sodium Chloride 96 ML IVC SCH (11:50)
[2021-05-28 20:03] LABS: Bacteria,Urine Few per hpf (None-Few); Bilirubin,Urine Negative (Negative); Blood,Urine Moderate (Negative); Budding Yeast,Urine Few per hpf (None Seen); Clarity,Urine Turbid (Clear); Color,Urine Yellow (Yellow); Glucose,Urine (UA) Normal (Normal); Hyaline Casts,Urine Few per lpf (None Seen); Ketones,Urine Trace mg/dL (Negative); Leukocyte Esterase,Urine Small (Negative); Mucus,Urine Few per lpf (None-Few); Nitrite,Urine Negative (Negative); Protein,Urine >=300 mg/dL (Neg-Trace); Specific Gravity,Urine 1.025 (1.010-1.025); Squamous Epithelial Cell,Urine Few per hpf (None-Few); Urobilinogen,Urine Normal (Normal)
[2021-05-29] MEDS ORDERED: 0.9 % Sodium Chloride 2,000 ML ONE (00:02)
[2021-05-29] MEDS: PrismaSATE BGK 4/2.5 5,000 ML CRRT SCH ×10 (01:09→21:54)
[2021-05-29] MEDS: FentaNYL (PF) 1,000 MCG/100 ML IV.SOLN IVC SCH ×3 (01:55→21:39)
[2021-05-29] MEDS: Norepinephrine 32 MG/250 ML IV.SOLN IVC SCH (02:30)
[2021-05-29] MEDS: Artificial Tears SOLN 15 ML BOTTLE BOTH EYES SCH ×6 (03:35→23:55)
[2021-05-29] MEDS: Ipratropium/Albuterol Neb 3 ML IH SCH ×4 (03:43→20:01)
[2021-05-29 03:48] LABS: VBG Ionized Calcium 1.14 mmol/L (1.15-1.35)
[2021-05-29 03:50] LABS: Basophils # 0.1 K/mcL (0.0-0.2); Basophils % 0.2 %; Eosinophils % 0.1 %; Hematocrit 23.7 % (37.5-50.1); Hemoglobin 7.3 g/dL (12.9-16.9); Lymphocytes # 1.2 K/mcL (0.6-4.6); Lymphocytes % 4.9 %; Mean Corpuscular HGB Conc 30.8 g/dL (31.6-35.5); Mean Corpuscular Hemoglobin 27.7 pg (28.0-33.3); Mean Corpuscular Volume 89.8 fL (83.0-100.0); Mean Platelet Volume 10.5 fL (9.4-12.4); Monocytes # 1.2 K/mcL (0.0-1.3); Monocytes % 4.8 %; Nucleated Red Blood Cells 0.7 /100 WBC (0); Platelet Count 196 K/mcL (140-400); Red Blood Count 2.64 M/mcL (4.19-5.50); White Blood Count 24.6 K/mcL (4.3-11.1)
[2021-05-29 03:52] LABS: Neutrophils # 21.4 K/mcL (1.6-8.9)
[2021-05-29 04:14] LABS: Albumin 3.1 g/dL (3.5-5.7); Albumin/Globulin Ratio 1.1 (1.1-2.2); Calcium 8.6 mg/dL (8.6-10.3); Globulin 2.8 g/dL (2.4-3.5); Magnesium 2.3 mg/dL (1.6-2.6); Phosphorous 2.8 mg/dL (2.7-4.5); Potassium 4.3 mEq/L (3.5-5.1); Total Protein 5.9 g/dL (6.4-8.9)
[2021-05-29 04:30] LABS: ABG Base Excess -2 mEq/L (-2 to 3); ABG HCO3 23 mEq/L (21-27); ABG Oxygen Saturation 78 % (95-98); ABG PCO2 43 mmHg (35-45); ABG PH 7.34 pH Units (7.32-7.45); ABG PO2 45 mmHg (85-104); ABG TCO2 24 mEq/L (20-26); Blood Gas VT 500 cc
[2021-05-29 04:39] LABS: Anisocytosis 2+ (Not Present); Hypochromasia Present (Not Present); Large Platelets Present (Not Present); Platelet Estimate Normal (Normal); Stomatocytes 1+ (Not Present)
[2021-05-29 05:31] LABS: Calcium 8.6 mg/dL (8.6-10.3); Potassium 4.5 mEq/L (3.5-5.1)
[2021-05-29] MEDS: Hydrocortisone Sodium Succ 100 MG/2 ML VIAL IVP SCH ×2 (05:34→12:01)
[2021-05-29] MEDS: *HR* Heparin 5,000 UNIT/ML VIAL SQ SCH ×3 (05:35→19:20)
[2021-05-29] MEDS: Chlorhexidine Rinse 15 ML MOUTHWASH MM SCH ×2 (08:59→19:18)
[2021-05-29] MEDS: Folic Acid 1 MG TABLET PO SCH (08:59)
[2021-05-29] MEDS: Cefepime HCl 1,000 MG in 0.9 % Sodium Chloride 10 ML IVP SCH (08:59)
[2021-05-29] MEDS: allopurinoL 100 MG TABLET PO SCH (08:59)
[2021-05-29] MEDS: Cyanocobalamin (B-12) 1,000 MCG TABLET PO SCH (08:59)
[2021-05-29] MEDS: Lactulose Oral Soln 20 GM/30 ML UDC PO SCH (08:59)
[2021-05-29] MEDS: Pantoprazole 40 MG VIAL IVP SCH (09:00)
[2021-05-29] MEDS ORDERED: Hydrocortisone Sodium Succ 100 MG/2 ML VIAL IVP SCH (15:00)
[2021-05-29] MEDS ORDERED: *HR* Heparin 5,000 UNIT/ML VIAL ONE (22:47)
[2021-05-29] MEDS ORDERED: 0.9 % Sodium Chloride 1,000 ML ONE (23:24)
[2021-05-29] MEDS: *HR* Heparin 5,000 UNIT/ML VIAL IVP PRN (23:53)
[2021-05-30] MEDS: Hydrocortisone Sodium Succ 100 MG/2 ML VIAL IVP SCH ×2 (00:07→12:03)
[2021-05-30] MEDS: PrismaSATE BGK 4/2.5 5,000 ML CRRT SCH ×13 (00:13→23:13)
[2021-05-30] MEDS: Furosemide 240 MG in 0.9 % Sodium Chloride 96 ML IVC SCH ×2 (01:13→21:33)
[2021-05-30 03:24] LABS: Basophils % 0.2 %; Hemoglobin 7.1 g/dL (12.9-16.9); Nucleated Red Blood Cells 0.7 /100 WBC (0)
[2021-05-30 03:25] LABS: Basophils # 0.1 K/mcL (0.0-0.2); Eosinophils # 0.1 K/mcL (0.0-0.6); Eosinophils % 0.2 %; Hematocrit 22.8 % (37.5-50.1); Immature Granulocytes % 4.9 % (0-4); Lymphocytes # 1.4 K/mcL (0.6-4.6); Lymphocytes % 4.2 %; Mean Corpuscular HGB Conc 31.1 g/dL (31.6-35.5); Mean Corpuscular Hemoglobin 27.3 pg (28.0-33.3); Mean Corpuscular Volume 87.7 fL (83.0-100.0); Mean Platelet Volume 11.6 fL (9.4-12.4); Monocytes # 2.3 K/mcL (0.0-1.3); Neutrophils # 26.8 K/mcL (1.6-8.9); Platelet Count 172 K/mcL (140-400); Red Cell Distribution Width 19.5 % (11.5-14.5); Segmented Neutrophils % 83.5 %
[2021-05-30 03:29] LABS: VBG Ionized Calcium 1.13 mmol/L (1.15-1.35)
[2021-05-30 03:42] LABS: White Blood Count 32.1 K/mcL (4.3-11.1)
[2021-05-30 03:43] LABS: Alanine Aminotransferase 8 Units/L (7-52); Albumin 3.1 g/dL (3.5-5.7); Albumin/Globulin Ratio 1.1 (1.1-2.2); Alkaline Phosphatase 83 Units/L (34-104); Aspartate Amino Transferase 17 Units/L (13-39); BUN/Creatinine Ratio 22 (6-26); Bilirubin,Total 1.2 mg/dL (0.3-1.0); Blood Urea Nitrogen 20 mg/dL (8-23); Calcium 8.4 mg/dL (8.6-10.3); Carbon Dioxide 26 mEq/L (23-29); Chloride 103 mEq/L (98-107); Globulin 2.9 g/dL (2.4-3.5); Glucose 113 mg/dL (70-105); Magnesium 2.3 mg/dL (1.6-2.6); Osmolality,Calculated 287 (280-300); Phosphorous 1.6 mg/dL (2.7-4.5); Potassium 3.9 mEq/L (3.5-5.1); Sodium 137 mEq/L (136-145); eGFR For African Americans > 60 (> 60); eGFR For Non-African Americans > 60 (> 60)
[2021-05-30 03:45] LABS: Anisocytosis 2+ (Not Present); Hypochromasia Present (Not Present); Platelet Estimate Normal (Normal); Poikilocytosis 1+ (Not Present); Target Cells 1+ (Not Present)
[2021-05-30] MEDS: Ipratropium/Albuterol Neb 3 ML IH SCH ×4 (03:45→21:41)
[2021-05-30] MEDS ORDERED: Potassium Phosphate 44 MEQ in 0.9 % Sodium Chloride 250 ML IVPB PRN (04:13)
[2021-05-30 04:25] LABS: ABG Base Excess 0 mEq/L (-2 to 3); ABG HCO3 24 mEq/L (21-27); ABG Oxygen Saturation 96 % (95-98); ABG PCO2 38 mmHg (35-45); ABG PH 7.41 pH Units (7.32-7.45); ABG PO2 78 mmHg (85-104); ABG TCO2 25 mEq/L (20-26); Blood Gas VT 500 cc
[2021-05-30] MEDS: Artificial Tears SOLN 15 ML BOTTLE BOTH EYES SCH ×5 (04:54→19:28)
[2021-05-30] MEDS: Norepinephrine 32 MG/250 ML IV.SOLN IVC SCH (05:00)
[2021-05-30] MEDS: *HR* Heparin 5,000 UNIT/ML VIAL SQ SCH ×3 (06:03→21:41)
[2021-05-30] MEDS: FentaNYL (PF) 1,000 MCG/100 ML IV.SOLN IVC SCH ×2 (08:59→16:00)
[2021-05-30] MEDS: Cyanocobalamin (B-12) 1,000 MCG TABLET PO SCH (09:00)
[2021-05-30] MEDS: Chlorhexidine Rinse 15 ML MOUTHWASH MM SCH ×2 (09:00→19:29)
[2021-05-30] MEDS: Lactulose Oral Soln 20 GM/30 ML UDC PO SCH (09:00)
[2021-05-30] MEDS: allopurinoL 100 MG TABLET PO SCH (09:00)
[2021-05-30] MEDS: Folic Acid 1 MG TABLET PO SCH (09:00)
[2021-05-30] MEDS: Pantoprazole 40 MG VIAL IVP SCH (09:00)
[2021-05-30] MEDS: Cefepime HCl 1,000 MG in 0.9 % Sodium Chloride 10 ML IVP SCH (09:01)
[2021-05-30] MEDS ORDERED: 0.9 % Sodium Chloride 2,000 ML ONE (19:22)
[2021-05-30] MEDS ORDERED: *HR* Heparin 5,000 UNIT/ML VIAL ONE (19:22)
[2021-05-30] MEDS: *HR* Heparin 5,000 UNIT/ML VIAL IVP PRN (21:16)
[2021-05-30] MEDS: Phenylephrine 100 MG in 0.9 % Sodium Chloride 250 ML IVC SCH (21:33)
[2021-05-30] MEDS: Dexmedetomidine HCl 400 MCG/100 ML MLS IVC SCH (21:34)
[2021-05-31] MEDS: Artificial Tears SOLN 15 ML BOTTLE BOTH EYES SCH ×6 (00:55→19:49)
[2021-05-31] MEDS: FentaNYL (PF) 1,000 MCG/100 ML IV.SOLN IVC SCH ×4 (01:41→21:24)
[2021-05-31] MEDS: PrismaSATE BGK 4/2.5 5,000 ML CRRT SCH ×10 (02:09→15:20)
[2021-05-31] MEDS: Norepinephrine 32 MG/250 ML IV.SOLN IVC SCH ×3 (02:36→22:42)
[2021-05-31] MEDS: Ipratropium/Albuterol Neb 3 ML IH SCH ×4 (03:34→20:26)
[2021-05-31 03:46] LABS: Hemoglobin 7.3 g/dL (12.9-16.9); Nucleated Red Blood Cells 1.5 /100 WBC (0)
[2021-05-31 03:46] LABS: VBG Ionized Calcium 1.15 mmol/L (1.15-1.35)
[2021-05-31 03:47] LABS: Hematocrit 23.5 % (37.5-50.1); Mean Corpuscular HGB Conc 31.1 g/dL (31.6-35.5); Mean Corpuscular Hemoglobin 27.5 pg (28.0-33.3); Mean Corpuscular Volume 88.7 fL (83.0-100.0); Mean Platelet Volume 12.6 fL (9.4-12.4); Platelet Count 151 K/mcL (140-400); Red Blood Count 2.65 M/mcL (4.19-5.50); Red Cell Distribution Width 19.1 % (11.5-14.5)
[2021-05-31 04:02] LABS: White Blood Count 34.2 K/mcL (4.3-11.1)
[2021-05-31 04:06] LABS: Alanine Aminotransferase 9 Units/L (7-52); Albumin 3.1 g/dL (3.5-5.7); Alkaline Phosphatase 83 Units/L (34-104); Aspartate Amino Transferase 19 Units/L (13-39); BUN/Creatinine Ratio 22 (6-26); Bilirubin,Total 1.4 mg/dL (0.3-1.0); Blood Urea Nitrogen 16 mg/dL (8-23); Calcium 8.3 mg/dL (8.6-10.3); Carbon Dioxide 26 mEq/L (23-29); Chloride 102 mEq/L (98-107); Glucose 107 mg/dL (70-105); Magnesium 2.3 mg/dL (1.6-2.6); Osmolality,Calculated 284 (280-300); Phosphorous 1.9 mg/dL (2.7-4.5); Sodium 136 mEq/L (136-145); Total Protein 6.1 g/dL (6.4-8.9); eGFR For African Americans > 60 (> 60); eGFR For Non-African Americans > 60 (> 60)
[2021-05-31 04:09] LABS: Anisocytosis 1+ (Not Present); Hypochromasia Present (Not Present); Lymphocytes # 2.7 K/mcL (0.6-4.6); Monocytes # 1.4 K/mcL (0.0-1.3); Neutrophils # 30.1 K/mcL (1.6-8.9); Platelet Estimate Normal (Normal)
[2021-05-31 04:37] LABS: ABG Base Excess 0 mEq/L (-2 to 3); ABG HCO3 25 mEq/L (21-27); ABG Oxygen Saturation 92 % (95-98); ABG PCO2 43 mmHg (35-45); ABG PH 7.38 pH Units (7.32-7.45); ABG PO2 64 mmHg (85-104); ABG TCO2 27 mEq/L (20-26); Blood Gas Modality AF; Blood Gas VT 480 cc
[2021-05-31] MEDS: *HR* Heparin 5,000 UNIT/ML VIAL SQ SCH ×3 (05:53→22:05)
[2021-05-31] MEDS: Folic Acid 1 MG TABLET PO SCH (07:52)
[2021-05-31] MEDS: Lactulose Oral Soln 20 GM/30 ML UDC PO SCH (07:52)
[2021-05-31] MEDS: Chlorhexidine Rinse 15 ML MOUTHWASH MM SCH ×2 (07:52→20:00)
[2021-05-31] MEDS: Pantoprazole 40 MG VIAL IVP SCH (07:53)
[2021-05-31] MEDS: Cyanocobalamin (B-12) 1,000 MCG TABLET PO SCH (07:53)
[2021-05-31] MEDS: allopurinoL 100 MG TABLET PO SCH (07:53)
[2021-05-31] MEDS: Cefepime HCl 1,000 MG in 0.9 % Sodium Chloride 10 ML IVP SCH (07:55)
[2021-05-31] MEDS: Furosemide 240 MG in 0.9 % Sodium Chloride 96 ML IVC SCH (09:50)
[2021-05-31] MEDS: Dexmedetomidine HCl 400 MCG/100 ML MLS IVC SCH (09:50)
[2021-05-31] MEDS ORDERED: 0.9 % Sodium Chloride 1,000 ML ONE ×2 (14:56→18:41)
[2021-05-31] MEDS: MetroNIDAZOLE 500 MG/100 ML 500 MG/100 ML BAG IVPB SCH (16:56)
[2021-05-31] MEDS: Cefepime HCl 2,000 MG in 0.9 % Sodium Chloride 10 ML IVP SCH (17:05)
[2021-05-31] MEDS: *HR* Heparin 5,000 UNIT/ML VIAL IVP PRN (17:50)
[2021-05-31] MEDS ORDERED: *HR* Heparin 5,000 UNIT/ML VIAL ONE (17:52)
[2021-05-31] MEDS: Phenylephrine 100 MG in 0.9 % Sodium Chloride 250 ML IVC SCH (18:47)
[2021-05-31 19:06] LABS: Source of Body Fluid RLL BAL
[2021-05-31 20:21] LABS: VBG Ionized Calcium 1.11 mmol/L (1.15-1.35)
[2021-05-31 20:23] LABS: Hematocrit 24.2 % (37.5-50.1); Hemoglobin 7.3 g/dL (12.9-16.9)
[2021-05-31 20:40] LABS: BUN/Creatinine Ratio 17 (6-26); Blood Urea Nitrogen 19 mg/dL (8-23); Calcium 8.1 mg/dL (8.6-10.3); Carbon Dioxide 26 mEq/L (23-29); Chloride 104 mEq/L (98-107); Glucose 91 mg/dL (70-105); Magnesium 2.2 mg/dL (1.6-2.6); Osmolality,Calculated 286 (280-300); Phosphorous 3.1 mg/dL (2.7-4.5); Potassium 4.2 mEq/L (3.5-5.1); Sodium 137 mEq/L (136-145); eGFR For African Americans > 60 (> 60); eGFR For Non-African Americans > 60 (> 60)
[2021-05-31 23:39] LABS: Appearance of Body Fluid Hazy (Clear); Volume of Body Fluid 25 mL
[2021-06-01] MEDS ORDERED: MetroNIDAZOLE 500 MG/100 ML 500 MG/100 ML BAG IVPB SCH
[2021-06-01] MEDS: Artificial Tears SOLN 15 ML BOTTLE BOTH EYES SCH ×7 (00:23→23:03)
[2021-06-01] MEDS: MetroNIDAZOLE 500 MG/100 ML 500 MG/100 ML BAG IVPB SCH ×4 (00:23→23:02)
[2021-06-01] MEDS: Phenylephrine 100 MG in 0.9 % Sodium Chloride 250 ML IVC SCH ×2 (04:00→10:35)
[2021-06-01 04:17] LABS: Hematocrit 23.3 % (37.5-50.1); Immature Granulocytes % 5.6 % (0-4); Nucleated Red Blood Cells 2.9 /100 WBC (0); Red Cell Distribution Width 19.2 % (11.5-14.5)
[2021-06-01 04:19] LABS: Basophils # 0.2 K/mcL (0.0-0.2); Basophils % 0.4 %; Eosinophils # 0.2 K/mcL (0.0-0.6); Eosinophils % 0.4 %; Lymphocytes % 5.5 %; Mean Corpuscular Hemoglobin 27.6 pg (28.0-33.3); Mean Corpuscular Volume 91.7 fL (83.0-100.0); Mean Platelet Volume 13.2 fL (9.4-12.4); Monocytes # 1.8 K/mcL (0.0-1.3); Monocytes % 4.1 %; Neutrophils # 37.4 K/mcL (1.6-8.9); Platelet Count 124 K/mcL (140-400); Red Blood Count 2.54 M/mcL (4.19-5.50)
[2021-06-01 04:24] LABS: Lymphocytes # 2.5 K/mcL (0.6-4.6)
[2021-06-01 04:25] LABS: Magnesium 2.2 mg/dL (1.6-2.6); Phosphorous 3.8 mg/dL (2.7-4.5); Potassium 4.2 mEq/L (3.5-5.1); White Blood Count 44.5 K/mcL (4.3-11.1)
[2021-06-01 04:26] LABS: Anisocytosis 1+ (Not Present); Platelet Estimate Slight Decrease (Normal)
[2021-06-01] MEDS: Ipratropium/Albuterol Neb 3 ML IH SCH ×4 (04:43→20:00)
[2021-06-01 04:56] LABS: ABG Base Excess -3 mEq/L (-2 to 3); ABG HCO3 24 mEq/L (21-27); ABG Oxygen Saturation 94 % (95-98); ABG PCO2 51 mmHg (35-45); ABG PH 7.28 pH Units (7.32-7.45); ABG PO2 80 mmHg (85-104); ABG TCO2 25 mEq/L (20-26); Blood Gas Modality ASSIST CONTROL; Blood Gas VT 480 cc
[2021-06-01] MEDS: *HR* Heparin 5,000 UNIT/ML VIAL SQ SCH ×3 (06:01→23:02)
[2021-06-01] MEDS: Cefepime HCl 2,000 MG in 0.9 % Sodium Chloride 10 ML IVP SCH (06:02)
[2021-06-01] MEDS: FentaNYL (PF) 1,000 MCG/100 ML IV.SOLN IVC SCH ×2 (06:23→16:42)
[2021-06-01] MEDS: Norepinephrine 32 MG/250 ML IV.SOLN IVC SCH ×3 (07:19→22:05)
[2021-06-01] MEDS: Pantoprazole 40 MG VIAL IVP SCH (08:20)
[2021-06-01] MEDS: Lactulose Oral Soln 20 GM/30 ML UDC PO SCH (08:20)
[2021-06-01] MEDS: allopurinoL 100 MG TABLET PO SCH (08:20)
[2021-06-01] MEDS: Cyanocobalamin (B-12) 1,000 MCG TABLET PO SCH (08:20)
[2021-06-01] MEDS: Folic Acid 1 MG TABLET PO SCH (08:21)
[2021-06-01] MEDS: Chlorhexidine Rinse 15 ML MOUTHWASH MM SCH ×2 (08:22→19:55)
[2021-06-01] MEDS ORDERED: D10% in Water 500 ML IVC PRN (11:16)
[2021-06-01] MEDS: Dexmedetomidine HCl 400 MCG/100 ML MLS IVC SCH (11:59)
[2021-06-01 13:12] LABS: ABG Base Excess -4 mEq/L (-2 to 3); ABG HCO3 22 mEq/L (21-27); ABG Oxygen Saturation 95 % (95-98); ABG PCO2 42 mmHg (35-45); ABG PH 7.33 pH Units (7.32-7.45); ABG PO2 84 mmHg (85-104); ABG TCO2 23 mEq/L (20-26)
[2021-06-01] MEDS ORDERED: Clinimix E 5%-15% SOLUTION 2,000 ML IVC SCH (17:00)
[2021-06-01 17:14] LABS: Basophils # 0.1 K/mcL (0.0-0.2); Basophils % 0.3 %; Eosinophils # 0.5 K/mcL (0.0-0.6); Eosinophils % 1.2 %; Hematocrit 22.2 % (37.5-50.1); Hemoglobin 6.8 g/dL (12.9-16.9); Immature Granulocytes % 4.8 % (0-4); Immature Platelets 19.7 % (1.1-6.1); Lymphocytes # 1.9 K/mcL (0.6-4.6); Lymphocytes % 4.8 %; Mean Corpuscular HGB Conc 30.6 g/dL (31.6-35.5); Mean Corpuscular Hemoglobin 27.6 pg (28.0-33.3); Mean Corpuscular Volume 90.2 fL (83.0-100.0); Mean Platelet Volume 11.9 fL (9.4-12.4); Monocytes # 1.3 K/mcL (0.0-1.3); Monocytes % 3.3 %; Neutrophils # 33.2 K/mcL (1.6-8.9); Nucleated Red Blood Cells 2.2 /100 WBC (0); Platelet Count 115 K/mcL (140-400); Red Blood Count 2.46 M/mcL (4.19-5.50); Red Cell Distribution Width 19.5 % (11.5-14.5); Segmented Neutrophils % 85.6 %
[2021-06-01] MEDS ORDERED: *HR* FentaNYL PATCH 25 MCG PATCH TD SCH (17:30)
[2021-06-01 17:38] LABS: Albumin 2.7 g/dL (3.5-5.7); Bilirubin,Direct 0.8 mg/dL (0.0-0.2); Bilirubin,Indirect 0.6 mg/dL (0.0-1.0); Bilirubin,Total 1.4 mg/dL (0.3-1.0); Globulin 2.7 g/dL (2.4-3.5); Total Protein 5.4 g/dL (6.4-8.9)
[2021-06-01 17:50] LABS: White Blood Count 38.8 K/mcL (4.3-11.1)
[2021-06-01 17:54] LABS: Basophilic Stippling 1+ (Not Present); Toxic Vacuolation Present (Not Present)
[2021-06-01 17:55] LABS: Hypochromasia Present (Not Present)
[2021-06-02] MEDS: Dexmedetomidine HCl 400 MCG/100 ML MLS IVC SCH ×2 (02:55→20:15)
[2021-06-02] MEDS: FentaNYL (PF) 1,000 MCG/100 ML IV.SOLN IVC SCH ×3 (02:56→22:31)
[2021-06-02] MEDS: Artificial Tears SOLN 15 ML BOTTLE BOTH EYES SCH ×5 (02:57→20:14)
[2021-06-02] MEDS: Ipratropium/Albuterol Neb 3 ML IH SCH ×4 (04:02→19:50)
[2021-06-02 04:07] LABS: Hematocrit 21.9 % (37.5-50.1); Hemoglobin 6.5 g/dL (12.9-16.9); Immature Platelets 19.6 % (1.1-6.1); Mean Corpuscular HGB Conc 29.7 g/dL (31.6-35.5); Mean Corpuscular Volume 90.9 fL (83.0-100.0); Mean Platelet Volume 13.3 fL (9.4-12.4); Platelet Count 119 K/mcL (140-400); Red Blood Count 2.41 M/mcL (4.19-5.50); Red Cell Distribution Width 19.4 % (11.5-14.5)
[2021-06-02 04:10] LABS: VBG Ionized Calcium 1.18 mmol/L (1.15-1.35)
[2021-06-02 04:17] LABS: ABG Base Excess -4 mEq/L (-2 to 3); ABG HCO3 22 mEq/L (21-27); ABG Oxygen Saturation 98 % (95-98); ABG PCO2 44 mmHg (35-45); ABG PO2 118 mmHg (85-104); ABG TCO2 23 mEq/L (20-26); Blood Gas VT 450 cc
[2021-06-02 04:22] LABS: White Blood Count 34.1 K/mcL (4.3-11.1)
[2021-06-02 04:23] LABS: Calcium 8.4 mg/dL (8.6-10.3); Magnesium 2.2 mg/dL (1.6-2.6); Potassium 4.2 mEq/L (3.5-5.1)
[2021-06-02 04:47] LABS: Anisocytosis 1+ (Not Present); Eosinophils # 1.4 K/mcL (0.0-0.6); Hypochromasia Present (Not Present); Lymphocytes # 2.1 K/mcL (0.6-4.6); Monocytes # 1.4 K/mcL (0.0-1.3); Platelet Estimate Slight Decrease (Normal); Toxic Granulation Present (Not Present)
[2021-06-02] MEDS: Norepinephrine 32 MG/250 ML IV.SOLN IVC SCH ×3 (05:15→20:26)
[2021-06-02] MEDS: *HR* Heparin 5,000 UNIT/ML VIAL SQ SCH ×3 (05:43→20:15)
[2021-06-02] MEDS: MetroNIDAZOLE 500 MG/100 ML 500 MG/100 ML BAG IVPB SCH ×2 (07:44→16:27)
[2021-06-02] MEDS: Folic Acid 1 MG TABLET PO SCH (07:45)
[2021-06-02] MEDS: Cyanocobalamin (B-12) 1,000 MCG TABLET PO SCH (07:45)
[2021-06-02] MEDS: Pantoprazole 40 MG VIAL IVP SCH (07:45)
[2021-06-02] MEDS: Lactulose Oral Soln 20 GM/30 ML UDC PO SCH (07:45)
[2021-06-02] MEDS: Chlorhexidine Rinse 15 ML MOUTHWASH MM SCH ×2 (07:45→20:15)
[2021-06-02] MEDS: allopurinoL 100 MG TABLET PO SCH (07:45)
[2021-06-02] MEDS: Insulin LISPRO 300 UNITS/3 ML VIAL SUBQ SCH ×3 (13:19→20:15)
[2021-06-02] MEDS: Phenylephrine 100 MG in 0.9 % Sodium Chloride 250 ML IVC SCH ×2 (14:08→22:18)
[2021-06-02] MEDS ORDERED: Clinimix 5%-20% SOLUTION 2,000 ML with MVI, adult with vitamin K 10 ML, Sodium Acetat... IV SCH (17:00)
[2021-06-02] MEDS ORDERED: Cefepime HCl 1,000 MG in 0.9 % Sodium Chloride 10 ML IVP SCH (18:00)
[2021-06-03] MEDS: Insulin LISPRO 300 UNITS/3 ML VIAL SUBQ SCH ×3 (00:05→07:30)
[2021-06-03 01:03] LABS: Calcium 8.3 mg/dL (8.6-10.3); Phosphorous 4.9 mg/dL (2.7-4.5); Potassium 3.8 mEq/L (3.5-5.1)
[2021-06-03] MEDS: Artificial Tears SOLN 15 ML BOTTLE BOTH EYES SCH ×5 (01:06→15:14)
[2021-06-03] MEDS: MetroNIDAZOLE 500 MG/100 ML 500 MG/100 ML BAG IVPB SCH ×2 (01:07→07:30)
[2021-06-03] MEDS: Phenylephrine 100 MG in 0.9 % Sodium Chloride 250 ML IVC SCH ×3 (03:40→15:13)
[2021-06-03] MEDS: Norepinephrine 32 MG/250 ML IV.SOLN IVC SCH ×2 (03:41→11:37)
[2021-06-03 03:49] LABS: Hematocrit 21.7 % (37.5-50.1)
[2021-06-03 03:50] LABS: Hemoglobin 6.7 g/dL (12.9-16.9); Mean Corpuscular HGB Conc 30.9 g/dL (31.6-35.5); Mean Corpuscular Hemoglobin 28.8 pg (28.0-33.3); Mean Corpuscular Volume 93.1 fL (83.0-100.0); Mean Platelet Volume 12.7 fL (9.4-12.4); Monocytes # 1.3 K/mcL (0.0-1.3); Nucleated Red Blood Cells 2.7 /100 WBC (0); Platelet Count 118 K/mcL (140-400); Red Blood Count 2.33 M/mcL (4.19-5.50); Red Cell Distribution Width 20.5 % (11.5-14.5)
[2021-06-03 04:02] LABS: White Blood Count 32.2 K/mcL (4.3-11.1)
[2021-06-03 04:11] LABS: VBG Ionized Calcium 1.25 mmol/L (1.15-1.35)
[2021-06-03] MEDS: Ipratropium/Albuterol Neb 3 ML IH SCH ×3 (04:23→15:48)
[2021-06-03 04:25] LABS: Eosinophils # 0.6 K/mcL (0.0-0.6); Lymphocytes # 1.9 K/mcL (0.6-4.6); Neutrophils # 27.7 K/mcL (1.6-8.9); Platelet Estimate Slight Decrease (Normal)
[2021-06-03 04:45] LABS: ABG Base Excess -8 mEq/L (-2 to 3); ABG HCO3 20 mEq/L (21-27); ABG Oxygen Saturation 98 % (95-98); ABG PCO2 46 mmHg (35-45); ABG PH 7.24 pH Units (7.32-7.45); ABG PO2 115 mmHg (85-104); ABG TCO2 21 mEq/L (20-26); Blood Gas Modality ASSIST CONTROL; Blood Gas VT 450 cc
[2021-06-03] MEDS: *HR* Heparin 5,000 UNIT/ML VIAL SQ SCH (05:20)
[2021-06-03] MEDS: FentaNYL (PF) 1,000 MCG/100 ML IV.SOLN IVC SCH ×2 (06:35→16:50)
[2021-06-03] MEDS: Chlorhexidine Rinse 15 ML MOUTHWASH MM SCH (07:29)
[2021-06-03] MEDS: Lactulose Oral Soln 20 GM/30 ML UDC PO SCH (07:29)
[2021-06-03] MEDS: Pantoprazole 40 MG VIAL IVP SCH (07:29)
[2021-06-03] MEDS: Folic Acid 1 MG TABLET PO SCH (07:29)
[2021-06-03] MEDS: Cyanocobalamin (B-12) 1,000 MCG TABLET PO SCH (07:29)
[2021-06-03] MEDS: allopurinoL 100 MG TABLET PO SCH (07:29)
[2021-06-03] MEDS: PrismaSATE BGK 4/2.5 5,000 ML CRRT SCH ×2 (09:13)
[2021-06-03] MEDS: Hydrocortisone Sodium Succ 100 MG/2 ML VIAL IVP SCH ×2 (10:57→17:02)
[2021-06-03] MEDS ORDERED: *HR* LORazepam 2 MG/ML VIAL IVP PRN (12:34)
[2021-06-03] MEDS ORDERED: Glycopyrrolate 0.2 MG/ML VIAL IVP ONE (12:35)
[2021-06-03] MEDS ORDERED: Clinimix 5%-20% SOLUTION 2,000 ML with MVI, adult with vitamin K 10 ML, Sodium Acetat... IV SCH (12:45)
[2021-06-03] MEDS: Dexmedetomidine HCl 400 MCG/100 ML MLS IVC SCH (13:30)
[2021-06-03 15:51] VITALS: O2SAT 100
[2021-06-03] MEDS ORDERED: SODIUM ACETATE IVPB SCH (17:00)
[2021-06-03] MEDS ORDERED: CLINIMIX IVPB SCH (17:00)
[2021-06-03] MEDS ORDERED: [UNRECOGNIZED DRUG - OTHER] IVPB SCH (17:00)
[2021-06-03 18:00] VITALS: BP 126/47; PULSE 86
[2021-06-03 18:26] VITALS: TEMP 97.9
== END 2021-06-03 19:15 | disposition expired | DRG 870 ==
LOC: EMEROOARM 07:22 → 2ANU 07:22 → SUATTDRO 11:05 → 2ANU 11:24 → ICNU 05-23 23:40
PROVIDERS: ADMIT Student in an Organized Health Care Education/Training Program; ATTEND Hospitalist